=== PATIENT | male | born 1975 | race Caucasian/White ===

== ENCOUNTER 2022-11-30 15:34 | Emergency (ER) | payer BC, SELFPAY ==
[2022-11-30] VITALS (12 sets, daily range): BP systolic 140–157; BP diastolic 89–102; PULSE 77–99; RESP 11–29; TEMP 37.1; O2SAT 93–99; BMI 30.7
--- NOTE | 2022-11-30 15:41 | PC.NURSE ---
Bedside glucose was 112
--- NOTE | 2022-11-30 15:43 | ECG_ITS ---
[facility] Test Date: 2022-11-30 Pat Name: CANDELARIA GROVES Department: Room: - Gender: Male Research Investigator: : 1975 Requested By: Order Number: [id number] Reading MD: PORTER VANG Measurements Intervals [place] Rate: 75 P: 61 CT: 158 QRS: 5 QRSD: 94 T: 8 QT: 374 QTc: 403 Interpretive Statements 1100 Sinus rhythm 8102 Low QRS voltage in chest leads 9120 atypical ECG No previous ECG available for comparison Electronically Signed On 12-02-2022 19:37:56 EDT by PORTER VANG
--- NOTE | 2022-11-30 15:50 | ED_ITS ---
HPI - Dizziness General Chief Complaint: Dizziness Stated Complaint: light headed/dizziness Time Seen by Provider: 11/30/22 15:36 Source: patient Mode of arrival: ambulance Limitations: no limitations History of Present Illness HPI Narrative: 47-year-old male presents for lightheadedness. 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 He had been drinking plenty of water and had eaten a good breakfast. He feels somewhat better now. No headache or chest pain or palpitations. No shortness of breath or fever or vomiting. Related Data Home Medications Medication Instructions Recorded Confirmed No Known Home Medications 11/30/22 11/30/22 Allergies Allergy/AdvReac Type Severity Reaction Status Date / Time No Known Drug Allergies Allergy Verified 11/30/22 15:38 Review of Systems ROS Narrative A ten point review of systems is negative except as noted above. Exam Narrative Exam Narrative: Nurses note and vital signs reviewed and patient is not hypoxic. General: The patient appears well and in no apparent distress. Patient is resting comfortably on cart. Skin: Warm, dry, no pallor noted. There is no rash noted. Head: Normocephalic, atraumatic Eye: Normal conjunctiva, no drainage Ears, Nose, Mouth, and Throat: oral mucosa is moist. Nares patent. Cardiovascular: Regular Rate and Rhythm, not tachycardic Respiratory: Patient is in no distress, no accessory muscle use, lungs are clear to auscultation, no wheezing, rales or rhonchi Back: non-tender GI: no tenderness to palpation, no masses appreciated. No rebound, guarding, or rigidity noted. Musculoskeletal: The patient has no evidence of calf tenderness, no pitting edema, symmetrical pulses noted bilaterally Neurological: A&O x4, normal speech; upper and lower extremity strength intact Psychiatric: Cooperative Constitutional Vital Signs - 24 hr 11/30/22 15:35 11/30/22 15:38 11/30/22 15:40 Temperature 98.8 F Pulse Rate 83 Pulse Rate [Monitor] 77 Respiratory Rate 20 14 Blood Pressure Blood Pressure [Left Arm] 157/100 H Pulse Oximetry 99 97 97 11/30/22 15:45 11/30/22 15:45 11/30/22 15:45 Temperature Pulse Rate 93 H 83 91 H Pulse Rate [Monitor] Respiratory Rate 18 11 L 22 Blood Pressure 140/102 H 140/102 H Blood Pressure [Left Arm] Pulse Oximetry 96 97 93 L 11/30/22 16:05 11/30/22 16:10 11/30/22 16:33 Temperature Pulse Rate 95 H 90 Pulse Rate [Monitor] Respiratory Rate 29 H 20 17 Blood Pressure Blood Pressure [Left Arm] Pulse Oximetry 96 94 L 98 11/30/22 16:40 11/30/22 16:50 11/30/22 16:51 Temperature Pulse Rate 84 87 97 H Pulse Rate [Monitor] Respiratory Rate 15 17 26 H Blood Pressure 143/89 H Blood Pressure [Left Arm] Pulse Oximetry 97 98 95 11/30/22 17:00 Temperature Pulse Rate 99 H Pulse Rate [Monitor] Respiratory Rate 18 Blood Pressure 148/92 H Blood Pressure [Left Arm] Pulse Oximetry 96 Course Vital Signs Vital signs: Vital Signs Temperature 98.8 F 11/30/22 15:35 Pulse Rate 77 11/30/22 15:35 Respiratory Rate 20 11/30/22 15:35 Blood Pressure 157/100 H 11/30/22 15:35 Pulse Oximetry 99 11/30/22 15:35 Temperature 98.8 F 11/30/22 15:35 Pulse Rate 99 H 11/30/22 17:00 Respiratory Rate 18 11/30/22 17:00 Blood Pressure 148/92 H 11/30/22 17:00 Pulse Oximetry 96 11/30/22 17:00 MDM - Dizziness MDM Narrative Medical decision making narrative: his workup including CT brain and blood work is negative. He feels back to normal now without intervention and is able to be discharged home. Treatment diagnosis and follow-up were discussed with the patient. Differential Diagnosis Differential diagnosis: Likely benign paroxysmal positional vertigo, orthostatic hypotension and other (dehydration, acute kidney injury, anemia) Lab Data Attestation: I reviewed the patient's lab results. Labs: Lab Results 11/30/22 Range/Units 16:00 WBC 7.0 (4.0-11.0) 10^3/uL RBC 4.95 (4.70-6.10) 10^6/uL Hgb 16.1 (14.0-18.0) g/dL Hct 45.3 (42.0-54.0) % MCV 91.5 (80.0-94.0) fL MCH 32.5 (25.9-34.0) pg MCHC 35.5 H (29.9-35.2) g/dL RDW 12.0 (11.0-15.0) % Plt Count 217 (150-450) 10^3/uL MPV 9.2 L (9.5-13.5) fL Neut % (Auto) 67.8 (43.0-75.0) % Lymph % (Auto) 19.6 L (20.5-60.0) % [place] % (Auto) 7.7 (1.7-12.0) % Eos % (Auto) 3.4 (0.9-7.0) % Baso % (Auto) 1.1 (0.2-2.0) % Neut # (Auto) 4.8 (1.4-6.5) 10^3/uL Lymph # (Auto) 1.4 (1.2-3.8) 10^3/uL [place] # (Auto) 0.5 (0.3-0.8) 10^3/uL Eos # (Auto) 0.2 (0.0-0.7) 10^3/uL Baso # (Auto) 0.1 (0.0-0.1) 10^3/uL Abs Immat Gran (auto) 0.03 (0.00-0.03) 10^3/uL Imm/Tot Granulo (auto) 0.4 (0.0-0.5) % Sodium 137 (136-145) mmol/L Potassium 3.5 (3.5-5.1) mmol/L Chloride 101 (98-107) mmol/L Carbon Dioxide 24.6 (21.0-32.0) mmol/L Anion Gap 14.9 BUN 14.0 (7.0-18.0) mg/dL Creatinine 0.88 (0.70-1.30) mg/dL Est GFR ( Amer) >60 (>=60) Est GFR (Non-Af Amer) >60 (>=60) BUN/Creatinine Ratio 15.9 Glucose 104 (74-106) mg/dL Calcium 9.2 (8.5-10.1) mg/dL Troponin I High Sens 4.1 (4.0-76.1) pg/mL Urine Color Lt. yellow (YELLOW) Urine Clarity Clear (CLEAR) Urine pH 6.0 (5.0-9.0) Ur Specific [place] 1.015 (1.005-1.025) Urine Protein Negative (NEG/TRACE) mg/dL Urine Glucose (UA) Negative (NEGATIVE) mg/dL Urine Ketones Trace A (NEGATIVE) mg/dL Urine Occult Blood Trace-i (NEGATIVE) Urine Nitrite Negative (NEGATIVE) Urine Bilirubin Negative (NEGATIVE) Urine Urobilinogen 0.2 (0.2-1.0) EU/dL Ur Leukocyte Esterase Negative (NEGATIVE) Discharge Plan Discharge Chief Complaint: Dizziness Clinical Impression: Dizziness Patient Disposition: Home, Self-Care Time of Disposition Decision: 17:22 Condition: Good Mode of Transportation: Private Vehicle Prescriptions / Home Meds: No Action No Known Home Medications Instructions: Lightheadedness (ED) Stand Alone Forms: Portal Instructions Referrals: Physician,Non-Staff, MD [Primary Care Provider] - 1 week
--- NOTE | 2022-11-30 16:00 | XR_ITS ---
The [address] [id number] Patient Name: CANDELARIA GROVES MRN: [id number] date: 1975 Sex: M Assigned Patient Location: ER Current Patient Location: ED.MAIN Accession/Order Number: [id number] Exam Date: 11/30/2022 16:17 Report Date: 12/03/2022 12:04 At the request of: RICK LANG Procedure: XR chest 1V EXAMINATION: XR chest 1V HISTORY: dizzy COMPARISON: No relevant comparison available. TECHNIQUE: AP portable FINDINGS: LUNGS: No significant pulmonary parenchymal abnormalities. VASCULATURE: No increased pulmonary vasculature. PLEURA: No pneumothorax, effusion, or pleural thickening. CARDIAC: No cardiomegaly or cardiac silhouette abnormality. MEDIASTINUM: No visible mass or adenopathy. BONES: No fracture or visible bone lesion. OTHER: Delay in interpretation is related to technical factors, the images were not available for viewing IMPRESSION: No acute cardiopulmonary process Electronically authenticated by: STACI DAVIS Date: 12/03/2022 12:04
--- NOTE | 2022-11-30 16:00 | CT_ITS ---
The [address] [address] Patient Name: CANDELARIA GROVES MRN: [id number] date: 1975 Sex: M Assigned Patient Location: ER Current Patient Location: ER Accession/Order Number: [id number] Exam Date: 11/30/2022 16:17 Report Date: 11/30/2022 16:44 At the request of: RICK LANG Procedure: CT head/brain wo con EXAM: CT head/brain wo con HISTORY: dizzy COMPARISON: None. TECHNIQUE: Axial CT scans through the head were obtained without IV contrast administration. Dose reduction techniques were achieved by using: automated exposure control and/or adjustment of mA and /or kV according to patient size and/or use of iterative reconstruction technique. FINDINGS: There is no acute intracranial hemorrhage or abnormal extra-axial fluid collection. No mass effect or midline shift is seen. There is no evidence of large acute territorial infarction. There is no hydrocephalus. To the limit of CT, the posterior fossa appears unremarkable. The calvaria and extra cranial soft tissues are unremarkable. The visualized orbits show no abnormal mass. The visualized paranasal sinuses show no air-fluid level. Mastoid air cells are clear. IMPRESSION: No acute intracranial process. Electronically authenticated by: MARIELA BARBA Date: 11/30/2022 16:44
[2022-11-30 16:21] LABS: Basophils Absolute Auto 0.1 10^3/uL (0.0-0.1); Basophils Percent Auto 1.1 % (0.2-2.0); Eosinophils Absolute Auto 0.2 10^3/uL (0.0-0.7); Eosinophils Percent Auto 3.4 % (0.9-7.0); Hematocrit 45.3 % (42.0-54.0); Hemoglobin 16.1 g/dL (14.0-18.0); Immature Granulocytes Abs Auto 0.03 10^3/uL (0.00-0.03); Immature Granulocytes Pct Auto 0.4 % (0.0-0.5); Lymphocytes Absolute Auto 1.4 10^3/uL (1.2-3.8); Lymphocytes Percent Auto 19.6 % (20.5-60.0); Mean Corpuscular HGB Conc 35.5 g/dL (29.9-35.2); Mean Corpuscular Hemoglobin 32.5 pg (25.9-34.0); Mean Corpuscular Volume 91.5 fL (80.0-94.0); Mean Platelet Volume 9.2 fL (9.5-13.5); Monocytes Absolute Auto 0.5 10^3/uL (0.3-0.8); Monocytes Percent Auto 7.7 % (1.7-12.0); Neutrophils Absolute Auto 4.8 10^3/uL (1.4-6.5); Neutrophils Percent Auto 67.8 % (43.0-75.0); Platelet Count 217 10^3/uL (150-450); Red Blood Count 4.95 10^6/uL (4.70-6.10)
[2022-11-30 16:28] LABS: Anion Gap 14.9; BUN Creatinine Ratio 15.9; Calcium 9.2 mg/dL (8.5-10.1); Carbon Dioxide 24.6 mmol/L (21.0-32.0); Chloride 101 mmol/L (98-107); Estimated GFR (African America >60 (>=60); Estimated GFR (Non-African Ame >60 (>=60); Glucose 104 mg/dL (74-106); Potassium 3.5 mmol/L (3.5-5.1); Sodium 137 mmol/L (136-145); Troponin I High Sensitivity 4.1 pg/mL (4.0-76.1)
[2022-11-30 16:31] LABS: Bilirubin Urine NEGATIVE (NEGATIVE); Blood Urine TRACE-I (NEGATIVE); Clarity Urine CLEAR (CLEAR); Color Urine LT. YELLOW (YELLOW); Glucose Urine UA NEGATIVE (NEGATIVE); Ketones Urine TRACE mg/dL (NEGATIVE); Leukocyte Esterase Urine NEGATIVE (NEGATIVE); Nitrite Urine NEGATIVE (NEGATIVE); Protein Urine NEGATIVE (NEG/TRACE); Specific Gravity Urine 1.015 (1.005-1.025); Urobilinogen Urine 0.2 EU/dL (0.2-1.0)
== END 2022-11-30 17:34 | disposition home or self-care (01) ==
PROVIDERS: Emergency Provider Emergency Medicine
DX: R42 Dizziness and giddiness (principal)
CPT/HCPCS: 36415; 70450; 71045; 80048; 81003; 82948; 84484; 85025; 93005; 99285

== ENCOUNTER 2023-09-06 22:37 | Emergency (ER) | payer BC, SELFPAY ==
[2023-09-06 22:44] VITALS: BP 152/88; PULSE 103; TEMP 36.7; O2SAT 98; BMI 32.3
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
[2023-09-06 23:03] LABS: Basophils Absolute Auto 0.1 10^3/uL (0.0-0.1); Basophils Percent Auto 1.2 % (0.2-2.0); Eosinophils Absolute Auto 0.2 10^3/uL (0.0-0.7); Eosinophils Percent Auto 2.5 % (0.9-7.0); Hematocrit 49.4 % (42.0-54.0); Hemoglobin 16.8 g/dL (14.0-18.0); Immature Granulocytes Abs Auto 0.02 10^3/uL (0.00-0.03); Immature Granulocytes Pct Auto 0.2 % (0.0-0.5); Lymphocytes Absolute Auto 2.1 10^3/uL (1.2-3.8); Lymphocytes Percent Auto 24.6 % (20.5-60.0); Mean Corpuscular Hemoglobin 32.9 pg (25.9-34.0); Mean Corpuscular Volume 96.9 fL (80.0-94.0); Mean Platelet Volume 8.9 fL (9.5-13.5); Monocytes Absolute Auto 0.7 10^3/uL (0.3-0.8); Monocytes Percent Auto 8.7 % (1.7-12.0); Neutrophils Absolute Auto 5.2 10^3/uL (1.4-6.5); Neutrophils Percent Auto 62.8 % (43.0-75.0); Platelet Count 183 10^3/uL (150-450); Red Cell Distribution Width 11.6 % (11.0-15.0); White Blood Count 8.3 10^3/uL (4.0-11.0)
[2023-09-06 23:23] LABS: Alanine Aminotransferase 81 U/L (16-63); Albumin Level 4.2 g/dL (3.4-5.0); Alkaline Phosphatase 63 U/L (46-116); Anion Gap 18.1; Aspartate Amino Transferase 31 U/L (15-37); BUN Creatinine Ratio 12.3; Bilirubin Total 0.7 mg/dL (0.2-1.0); Calcium 8.8 mg/dL (8.5-10.1); Carbon Dioxide 20.6 mmol/L (21.0-32.0); Chloride 107 mmol/L (98-107); Estimated GFR (African America >60 (>=60); Estimated GFR (Non-African Ame >60 (>=60); Ethanol 331 mg/dL; Glucose 119 mg/dL (74-106); Magnesium 2.6 mg/dL (1.8-2.4); Potassium 3.7 mmol/L (3.5-5.1); Sodium 142 mmol/L (136-145); Total Protein 8.2 g/dL (6.4-8.2)
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
[2023-09-06 23:52] LABS: Amphetamine Screen Urine NEGATIVE (NEGATIVE); Barbiturates Screen Urine NEGATIVE (NEGATIVE); Benzodiazepines Screen Urine NEGATIVE (NEGATIVE); Buprenorphine Screen Urine NEGATIVE (NEGATIVE); Cannabinoid Screen Urine NEGATIVE (NEGATIVE); Cocaine Screen Urine NEGATIVE (NEGATIVE); Methadone Screen Urine NEGATIVE (NEGATIVE); Methamphetamines Screen Urine NEGATIVE (NEGATIVE); Opiate Screen Urine NEGATIVE (NEGATIVE); Oxycodone Screen Urine NEGATIVE (NEGATIVE); Phencyclidine Screen Urine NEGATIVE (NEGATIVE); Tricyclic Antidepressant Urine NEGATIVE (NEGATIVE)
--- NOTE | 2023-09-06 23:59 | PC.NURSE ---
residential lawn specialist approaches nurses station to inform this RN that patient has made a suicidal statement, saying that he wishes he was . This RN enters patient room, asked him what his statement was and told him that the officer told me what he had said and that he was not considered a suicidal patient. He said he was not serious, but he is informed that we could not take it as a joke. He is explained the process of the testing that is required now and that he will need to speak to [facility]. He is laughing and does not understand why this needs to happen, but he does say that he is willing to cooperate with the process.
--- NOTE | 2023-09-07 13:19 | ECG_ITS ---
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
== END 2023-09-06 23:50 ==
PROVIDERS: Emergency Provider Internal Medicine
DX: F10.129 Alcohol abuse with intoxication, unspecified (principal); Y90.8 Blood alcohol level of 240 mg/100 ml or more; R45.851 Suicidal ideations; F32.A Depression, unspecified
CPT/HCPCS: 36415; 80053; 80307; 80320; 83735; 85025; 93005; 99283

== ENCOUNTER 2023-09-28 12:45 | Emergency (ER) | payer BC, SELFPAY ==
[2023-09-28 12:48] VITALS: BP 131/92; PULSE 78; TEMP 36.7; O2SAT 98; BMI 31.3
--- NOTE | 2023-09-28 12:56 | PC.NURSE ---
fluid filled right knee, pt denies pain and ambulating with no problems
--- NOTE | 2023-09-28 12:58 | XR_ITS ---
The [address] [address] Patient Name: CANDELARIA GROVES MRN: [id number] date: 1975 Sex: M Assigned Patient Location: ER Current Patient Location: ER Accession/Order Number: [id number] Exam Date: 09/28/2023 13:16 Report Date: 09/28/2023 13:53 At the request of: RICK LANG Procedure: XR knee RT 3V EXAM: XR knee RT 3V HISTORY: Swollen for 4 days, likely bursitis COMPARISON: None. TECHNIQUE: AP, oblique, lateral x-ray right knee. FINDINGS: Normal mineralization. No fracture or focal bone lesion. Normal joint spaces. No joint effusion. Marked prevertebral soft tissue swelling correlate for bursitis. No intra-articular or periarticular calcification or loose body XR/XR knee RT 3V IMPRESSION: Negative for fracture or joint effusion. Marked prepatellar soft tissue swelling correlate for bursitis. Electronically authenticated by: TARA HERNANDEZ Date: 09/28/2023 13:53
--- NOTE | 2023-09-28 12:58 | ED.EXTPRO1 ---
HPI - Extremity Problem General Chief complaint: Extremity Problem, Nontraumatic Stated complaint: LOWER EXTREMITY PAIN Time Seen by Provider: 09/28/23 12:54 Source: patient Mode of arrival: walk-in History of Present Illness HPI Narrative: 48-year-old male presents for swelling to his right knee. It has been like this for 4 days and there is no specific injury. Signs and is frequently on his knees. He has no symptoms in the left knee. He has never had an issue with this knee before. Related Data Previous Rx's ?Medication ?Instructions ?Recorded ibuprofen 800 mg tablet 800 mg PO Q8H PRN pain #20 tabs 09/28/23 Allergies Allergy/AdvReac Type Severity Reaction Status Date / Time No Known Drug Allergies Allergy Verified 11/30/22 15:38 Review of Systems ROS Narrative A ten point review of systems is negative except as noted above. Exam Narrative Exam Narrative: Nurses note and vital signs reviewed and patient is not hypoxic. General: The patient appears well and in no apparent distress. Patient is resting comfortably on cart. Skin: Warm, dry, no pallor noted. There is no rash noted. Head: Normocephalic, atraumatic Eye: Normal conjunctiva, no drainage Ears, Nose, Mouth, and Throat: oral mucosa is moist. Nares patent. Cardiovascular: Regular Rate and Rhythm Respiratory: Patient is in no distress, no accessory muscle use, lungs are clear to auscultation, no wheezing, rales or rhonchi Back: non-tender GI: Soft and nontender Musculoskeletal: The right knee is examined. He has prepatellar swelling. There is no erythema or bruise or abrasion or other defect in the skin. Neurological: Awake and alert Psychiatric: Cooperative Constitutional Vital Signs, click to edit/add: Last Vital Signs Temp 98.1 F 09/28/23 12:48 Pulse 78 09/28/23 12:48 Resp 14 09/28/23 12:48 BP 131/92 H 09/28/23 12:48 Pulse Ox 98 09/28/23 12:48 O2 Del Method Room Air 09/28/23 12:48 Course Vital Signs Vital signs: Vital Signs Temperature 98.1 F 09/28/23 12:48 Pulse Rate 78 09/28/23 12:48 Respiratory Rate 14 09/28/23 12:48 Blood Pressure 131/92 H 09/28/23 12:48 Pulse Oximetry 98 09/28/23 12:48 Oxygen Delivery Method Room Air 09/28/23 12:48 Temperature 98.1 F 09/28/23 12:48 Pulse Rate 78 09/28/23 12:48 Respiratory Rate 14 09/28/23 12:48 Blood Pressure 131/92 H 09/28/23 12:48 Pulse Oximetry 98 09/28/23 12:48 Oxygen Delivery Method Room Air 09/28/23 12:48 MDM - Extremity (Nontraumatic) MDM Narrative Medical decision making narrative: Physical exam and x-ray are consistent with bursitis. Camilo wrap applied, application checked by me and found to be appropriate, he is neurovascular intact and he was placed on crutches. Orthopedist appointment was made and he is prescribed anti-inflammatory. Treatment diagnosis and follow-up were discussed with the patient. Differential Diagnosis Differential diagnosis: Likely other (Knee sprain, bursitis) Discharge Plan Discharge Stand Alone Forms: Portal Instructions Chief Complaint: Extremity Problem, Nontraumatic Clinical Impression: Bursitis of right knee Patient Disposition: Home, Self-Care Time of Disposition Decision: 14:01 Condition: Good Mode of Transportation: Private Vehicle Prescriptions / Home Meds: New ibuprofen 800 mg tablet 800 mg PO Q8H PRN (Reason: pain) Qty: 20 0RF Print Language: Kyrgyz Instructions: Knee Bursitis (ED) Additional Instructions: See Dr. Mills at 10 AM on Saturday Referrals: Physician,Non-Staff, [Primary Care Provider] - 1 week Raymundo Mills MD [Physician] - 1 week
== END 2023-09-28 14:15 | disposition home or self-care (01) ==
PROVIDERS: Emergency Provider Emergency Medicine
DX: M70.51 Other bursitis of knee, right knee (principal)
CPT/HCPCS: 73562; 99283

== ENCOUNTER 2024-04-27 08:31 | Emergency (ER) | payer BC, SELFPAY ==
[2024-04-27] VITALS (23 sets, daily range): BP systolic 119–145; BP diastolic 79–92; PULSE 79; TEMP 37.1; O2SAT 94–99; BMI 32.3
--- NOTE | 2024-04-27 09:00 | ED_ITS ---
HPI - Abdominal Pain General Chief Complaint: Abdominal Pain Stated Complaint: ABDOMINAL PAIN Time Seen by Provider: 04/27/24 08:34 Source: patient Mode of arrival: walk-in Limitations: no limitations History of Present Illness HPI narrative: 48-year-old male presents to the emergency department for abdominal pain. It is across his lower abdomen, bilateral, and has been present for 2 days. No constipation vomiting or diarrhea. No fever or injury. No dysuria or hematuria and it is continuous. Related Data Previous Rx's ?Medication ?Instructions ?Recorded ciprofloxacin HCl 500 mg tablet 500 mg PO Q12H #20 tabs 04/27/24 (Cipro) metronidazole 500 mg tablet 500 mg PO TID #30 tabs 04/27/24 Allergies Allergy/AdvReac Type Severity Reaction Status Date / Time No Known Drug Allergies Allergy Verified 11/30/22 15:38 Review of Systems ROS Narrative A ten point review of systems is negative except as noted above. Exam Narrative Exam Narrative: Nurses note and vital signs reviewed and patient is not hypoxic. General: The patient appears well and in no apparent distress. Patient is resting comfortably on cart. Skin: Warm, dry, no pallor noted. There is no rash noted. Head: Normocephalic, atraumatic Eye: Normal conjunctiva, no drainage Ears, Nose, Mouth, and Throat: oral mucosa is moist. Nares patent. Cardiovascular: Regular Rate and Rhythm Respiratory: Patient is in no distress, no accessory muscle use, lungs are clear to auscultation, no wheezing, rales or rhonchi Back: non-tender GI: Soft and nondistended. No tenderness across the upper abdomen but he has tenderness in the left lower quadrant and right lower quadrant of his abdomen. No masses or rebound or guarding present. Musculoskeletal: The patient has no evidence of calf tenderness, no pitting edema, symmetrical pulses noted bilaterally Neurological: A&O, normal speech Psychiatric: Cooperative Constitutional Vital Signs, click to edit/add: Last Vital Signs Temp 98.8 F 04/27/24 08:38 Pulse 79 04/27/24 08:38 Resp 18 04/27/24 08:38 BP 131/82 04/27/24 10:00 Pulse Ox 94 L 04/27/24 09:20 O2 Del Method Room Air 04/27/24 08:52 Course Vital Signs Vital signs: Vital Signs Pulse Oximetry 98 04/27/24 08:37 Temperature 98.8 F 04/27/24 08:38 Pulse Rate 79 04/27/24 08:38 Respiratory Rate 18 04/27/24 08:38 Blood Pressure 131/82 04/27/24 10:00 Pulse Oximetry 94 L 04/27/24 09:20 Oxygen Delivery Method Room Air 04/27/24 08:52 MDM - Abdominal Pain MDM Narrative Medical decision making narrative: Acute diverticulitis is identified, uncomplicated. He has never had a colonoscopy and we discussed colonoscopies. He is given IV Cipro and Flagyl here and discharged home on oral Cipro and Flagyl. No indication for admission to the hospital at this point. Treatment diagnosis and follow-up were discussed with the patient. Differential Diagnosis Differential diagnosis: Likely acute appendicitis, constipation, diverticulitis, gastroenteritis and pancreatitis Lab Data Attestation: I reviewed the patient's lab results. Labs: Lab Results 04/27/24 04/27/24 Range/Units 08:43 08:45 WBC 10.2 (4.0-11.0) 10^3/uL RBC 4.89 (4.70-6.10) 10^6/uL Hgb 16.1 (14.0-18.0) g/dL Hct 45.2 (42.0-54.0) % MCV 92.4 (80.0-94.0) fL MCH 32.9 (25.9-34.0) pg MCHC 35.6 H (29.9-35.2) g/dL RDW 11.9 (11.0-15.0) % Plt Count 202 (150-450) 10^3/uL MPV 9.3 L (9.5-13.5) fL Neut % (Auto) 72.3 (43.0-75.0) % Lymph % (Auto) 15.6 L (20.5-60.0) % [place] % (Auto) 8.1 (1.7-12.0) % Eos % (Auto) 2.9 (0.9-7.0) % Baso % (Auto) 0.8 (0.2-2.0) % Neut # (Auto) 7.4 H (1.4-6.5) 10^3/uL Lymph # (Auto) 1.6 (1.2-3.8) 10^3/uL [place] # (Auto) 0.8 (0.3-0.8) 10^3/uL Eos # (Auto) 0.3 (0.0-0.7) 10^3/uL Baso # (Auto) 0.1 (0.0-0.1) 10^3/uL Abs Immat Gran (auto) 0.03 (0.00-0.03) 10^3/uL Imm/Tot Granulo (auto) 0.3 (0.0-0.5) % Sodium 142 (136-145) mmol/L Potassium 3.9 (3.5-5.1) mmol/L Chloride 104 (98-107) mmol/L Carbon Dioxide 25.1 (21.0-32.0) mmol/L Anion Gap 16.8 BUN 12.0 (7.0-18.0) mg/dL Creatinine 0.99 (0.70-1.30) mg/dL Est GFR ( Amer) >60 (>=60 mL/min/1.73m^2) Est GFR (Non-Af Amer) >60 (>=60 mL/min/1.73m^2) BUN/Creatinine Ratio 12.1 Glucose 107 H (74-106) mg/dL Calcium 8.9 (8.5-10.1) mg/dL Urine Color Yellow (YELLOW) Urine Clarity Clear (CLEAR) Urine pH 6.0 (5.0-9.0) Ur Specific [place] 1.025 (1.005-1.025) Urine Protein Negative (NEG/TRACE) mg/dL Urine Glucose (UA) Negative (NEGATIVE) mg/dL Urine Ketones Negative (NEGATIVE) mg/dL Urine Occult Blood Trace-i (NEGATIVE) Urine Nitrite Negative (NEGATIVE) Urine Bilirubin Negative (NEGATIVE) Urine Urobilinogen 0.2 (0.2-1.0) EU/dL Ur Leukocyte Esterase Negative (NEGATIVE) Urine RBC 0-2 (0-2) #/HPF Urine WBC None seen (NONE SEEN) #/HPF Ur Squamous Epith Cells Rare (NONE/RARE) #/LPF Urine Crystals None seen (None Seen) #/HPF Urine Bacteria Trace A (NONE SEEN) #/HPF Urine Casts None seen (NONE SEEN) #/LPF Urine Mucus None seen (NONE SEEN) Imaging Data CT scan - abdomen: Radiologist's impression: ITS Impressions Abdomen/Pelvis CT 04/27/24 09:06 IMPRESSION: 1. Nonobstructing right nephrolithiasis. 2. Moderate acute diverticulitis of the distal sigmoid colon. No bowel obstruction. Electronically authenticated by: MELLISSA BRAUN Date: 04/27/2024 10:30 Discharge Plan Discharge Chief Complaint: Abdominal Pain Clinical Impression: Diverticulitis Patient Disposition: Home, Self-Care Time of Disposition Decision: 11:29 Condition: Good Mode of Transportation: Private Vehicle Prescriptions / Home Meds: New metronidazole 500 mg tablet 500 mg PO TID Qty: 30 0RF ciprofloxacin HCl [Cipro] 500 mg tablet 500 mg PO Q12H Qty: 20 0RF Print Language: Icelandic Instructions: Diverticulitis (ED) Referrals: Physician,Non-Staff, MD [Primary Care Provider] - 1 week
--- NOTE | 2024-04-27 09:06 | CT_ITS ---
[address] [address] Patient Name: CANDELARIA GROVES MRN: [id number] date: 1975 Sex: M Assigned Patient Location: ER Current Patient Location: Accession/Order Number: [id number] Exam Date: 04/27/2024 09:23 Report Date: 04/27/2024 10:30 At the request of: RICK LANG Procedure: CT abdomen pelvis w con EXAMINATION: CT abdomen pelvis w con HISTORY: low abd pain , right flank pain COMPARISON: No relevant comparison available. TECHNIQUE: Axial, Coronal, and Sagittal images were obtained without and/or with IV contrast as indicated by examination type. Dose reduction techniques were achieved by using automated exposure control and/or adjustment of mA and/or kV according to patient size and/or use of iterative reconstruction technique. FINDINGS: LUNG BASES: No visible pulmonary or pleural disease. LIVER: No enlargement, atrophy, suspicious density, or significant focal lesion. BILIARY: No dilatation or calcification. PANCREAS: No lesion, fluid collection, or abnormal duct dilatation. SPLEEN: No enlargement or focal lesion. ADRENALS: No mass or enlargement. KIDNEYS: 2 mm nonobstructing stone within right kidney. Unremarkable left kidney and bilateral ureters. BOWEL/MESENTERY: Numerous diverticula involving the descending and sigmoid colon with moderate wall thickening and mild pericolonic inflammatory changes of the distal sigmoid colon. No bowel obstruction, free air, or free fluid. Normal appendix. AORTA/VASCULAR: No aneurysm or dissection. RETROPERITONEUM: No mass or adenopathy. LYMPH NODES: No adenopathy. URINARY BLADDER: No visible focal wall thickening, lesion, or calculus. PELVIC ORGANS: No visible mass. Pelvic organs appropriate for patient age. ABDOMINAL WALL: No mass or hernia. BONES: No bony lesion or fracture. OTHER: Negative. CT/CT abdomen pelvis w con IMPRESSION: 1. Nonobstructing right nephrolithiasis. 2. Moderate acute diverticulitis of the distal sigmoid colon. No bowel obstruction. Electronically authenticated by: MELLISSA BRAUN Date: 04/27/2024 10:30
[2024-04-27 09:12] LABS: Basophils Absolute Auto 0.1 10^3/uL (0.0-0.1); Basophils Percent Auto 0.8 % (0.2-2.0); Eosinophils Absolute Auto 0.3 10^3/uL (0.0-0.7); Eosinophils Percent Auto 2.9 % (0.9-7.0); Hematocrit 45.2 % (42.0-54.0); Hemoglobin 16.1 g/dL (14.0-18.0); Immature Granulocytes Abs Auto 0.03 10^3/uL (0.00-0.03); Immature Granulocytes Pct Auto 0.3 % (0.0-0.5); Lymphocytes Absolute Auto 1.6 10^3/uL (1.2-3.8); Lymphocytes Percent Auto 15.6 % (20.5-60.0); Mean Corpuscular HGB Conc 35.6 g/dL (29.9-35.2); Mean Corpuscular Hemoglobin 32.9 pg (25.9-34.0); Mean Corpuscular Volume 92.4 fL (80.0-94.0); Mean Platelet Volume 9.3 fL (9.5-13.5); Monocytes Absolute Auto 0.8 10^3/uL (0.3-0.8); Monocytes Percent Auto 8.1 % (1.7-12.0); Neutrophils Absolute Auto 7.4 10^3/uL (1.4-6.5); Neutrophils Percent Auto 72.3 % (43.0-75.0); Platelet Count 202 10^3/uL (150-450); Red Blood Count 4.89 10^6/uL (4.70-6.10); Red Cell Distribution Width 11.9 % (11.0-15.0); White Blood Count 10.2 10^3/uL (4.0-11.0)
[2024-04-27 09:15] LABS: Anion Gap 16.8; BUN Creatinine Ratio 12.1; Calcium 8.9 mg/dL (8.5-10.1); Carbon Dioxide 25.1 mmol/L (21.0-32.0); Chloride 104 mmol/L (98-107); Estimated GFR (African America >60 (>=60 mL/min/1.73m^2); Estimated GFR (Non-African Ame >60 (>=60 mL/min/1.73m^2); Glucose 107 mg/dL (74-106); Potassium 3.9 mmol/L (3.5-5.1); Sodium 142 mmol/L (136-145)
[2024-04-27 09:35] LABS: Bilirubin Urine NEGATIVE (NEGATIVE); Blood Urine TRACE-I (NEGATIVE); Clarity Urine CLEAR (CLEAR); Color Urine YELLOW (YELLOW); Glucose Urine UA NEGATIVE (NEGATIVE); Ketones Urine NEGATIVE (NEGATIVE); Leukocyte Esterase Urine NEGATIVE (NEGATIVE); Nitrite Urine NEGATIVE (NEGATIVE); Protein Urine NEGATIVE (NEG/TRACE); Specific Gravity Urine 1.025 (1.005-1.025); Urobilinogen Urine 0.2 EU/dL (0.2-1.0)
[2024-04-27 09:48] LABS: Bacteria Urine TRACE #/HPF (NONE SEEN); Cast Seen? NONE SEEN #/LPF (NONE SEEN); Crystals Seen? None Seen #/HPF (None Seen); Mucus Urine NONE SEEN (NONE SEEN); RBC Urine 0-2 #/HPF (0-2); Squamous Epithelial Cell Urine RARE #/LPF (NONE/RARE); WBC Urine NONE SEEN #/HPF (NONE SEEN)
[2024-04-27] MEDS: METRONIDAZOLE/SODIUM CHLORIDE 500 MG/100 ML PREMIX 100 MG IV (11:08)
[2024-04-27] MEDS: CIPROFLOXACIN IN 5 % DEXTROSE 400 MG/200 ML PREMIX 200 MG IV (12:07)
== END 2024-04-27 13:14 | disposition home or self-care (01) ==
PROVIDERS: Emergency Provider Emergency Medicine
DX: K57.32 Diverticulitis of large intestine without perforation or abscess without bleeding (principal)
CPT/HCPCS: 36415; 74177; 80048; 81001; 85025; 96365; 96367; 99285; J0744; J1836; Q9967

== ENCOUNTER 2025-05-01 09:57 | Emergency (ER) | payer BC, SELFPAY ==
[2025-05-01 10:09] VITALS: BP 142/91; PULSE 66; TEMP 37.3; O2SAT 98; BMI 32.3
--- NOTE | 2025-05-01 10:15 | XR_ITS ---
[facility] [place] [id number] Patient Name: CANDELARIA GROVES MRN: [id number] date: 1975 Sex: M Assigned Patient Location: ER Current Patient Location: ED.MAIN Accession/Order Number: [id number] Exam Date: 05/01/2025 10:30 Report Date: 05/01/2025 10:50 At the request of: VIJAYA NICOLE MD Procedure: XR ankle LT min 3V LEFT FOOT - 3 views left ankle 3 views CLINICAL HISTORY: pain COMPARISON: None FINDINGS: Left ankle: Soft tissue swelling is present. Ankle mortise appears intact. No acute bony process is seen. Left foot: Mild soft tissue swelling. No acute bony process is seen. Joint spaces demonstrate mild narrowing involving the first MTP joint without erosions. XR/XR ankle LT min 3V IMPRESSION: SOFT TISSUE SWELLING INVOLVING THE LEFT ANKLE AND FOOT WITHOUT ACUTE BONY PROCESS. Impression dictated by: Phani Rosa Jr., DAnnabelOAnnabel 05/01/2025 10:50 AM Dictation Location[facility] Electronically authenticated by: [id number] Y Date: 05/01/2025 10:50
--- NOTE | 2025-05-01 10:15 | XR_ITS ---
[facility] [place] [id number] Patient Name: CANDELARIA GROVES MRN: [id number] date: 1975 Sex: M Assigned Patient Location: ER Current Patient Location: ED.MAIN Accession/Order Number: [id number] Exam Date: 05/01/2025 10:30 Report Date: 05/01/2025 10:50 At the request of: VIJAYA NICOLE MD Procedure: XR ankle LT min 3V LEFT FOOT - 3 views left ankle 3 views CLINICAL HISTORY: pain COMPARISON: None FINDINGS: Left ankle: Soft tissue swelling is present. Ankle mortise appears intact. No acute bony process is seen. Left foot: Mild soft tissue swelling. No acute bony process is seen. Joint spaces demonstrate mild narrowing involving the first MTP joint without erosions. XR/XR foot LT min 3V IMPRESSION: SOFT TISSUE SWELLING INVOLVING THE LEFT ANKLE AND FOOT WITHOUT ACUTE BONY PROCESS. Impression dictated by: Phani Rosa Jr., DAnnabelOAnnabel 05/01/2025 10:50 AM Dictation Location: [facility] Electronically authenticated by: [id number] Y Date: 05/01/2025 10:50
--- OUTSIDE RECORDS SUMMARY | 2025-05-01 10:39 | XMS_ITS | CCD ---
Author Organization [facility] Care Team Providers Care Sales Stock Associate Name Role Phone Padma Larsen Unavailable Joesph Noriega Unavailable Adore Moreno Unavailable Janette JOHNSON, Marielle Kuo Attend ing Unavailable PAUL BEAN Referring Unavailable PAUL BEAN Primary Care Unavailable Clark Schreiber Attending Unavailab Clark Lowry Admitting Unavailab levi REYES FAMILY, PHYSICIAN Primary Care Unavailable Paul Bean DO Primary Care Provider Paul Bean DO Primary Care Provider PAUL BEAN Attending Unavailable PAUL BEAN Referring Unavailable PAUL BEAN Primary Care Unavailable PAUL BEAN Attending Unavailable PAUL BEAN Referring Unavailable PAUL BEAN Primary Care Unavailable PAUL BEAN Referring Unavailable PAUL BEAN Primary Care Unavailable PAUL BEAN Referring Unavailable PAUL BEAN Primary Care Unavailable PAUL BEAN Attending Unavailable PAUL BEAN Referring Unavailable PAUL BEAN Primary Care Unavailable PAUL BEAN Attending Unavailable PAUL BEAN Referring Unavailable PAUL BEAN Primary Care Unavailable PAUL BEAN Referring Unavailable PAUL BEAN Primary Care Unavailable Medications Current Medications MedicationDrug Class(es)DatesSig (Normalized)Sig (Original)doxycycline hyclate 100 mg oral capsule (1 source)Tetracycline-class DrugStart: 98-09-8713acji 1 capsule by mouth twice dailyDoxycycline Hyclate 100 mg capsule Active 100 MG PO Twice daily 29 03July 23, 2024 12:00amgabapentin 600 mg oral tablet (2 sources)Anti-epileptic AgentStart: 56-08-1300ybqj 1 capsule by mouth once daily at bedtimeGabapentin 600 MG 1 capsule Orally qhs for 30 day(s) October, Activemeloxicam 15 mg oral tablet (4 sources)Nonsteroidal Anti-inflammatory DrugStart: 75-29-4084lymf 1 tablet by mouth in the morningmeloxicam (MOBIC) 15 mg tablet Indications: Rotator cuff arthropathy of right shoulder Take 1 tablet (15 mg total) by mouth in the morning. 30 tablet 2 11/18/2024 ActivemethylPREDNISolone 4 mg oral tablet (1 source)CorticosteroidStart: 96-59-0365gxjkwmIOMWVHKqcpft 4 MG as directed Orally for daily dose take half with breakfast, half with dinner for 6 days May, ActivepredniSONE 20 mg oral tablet (2 sources)Start: 68-18-6582ftus 2 tablets by mouth once dailyPrednisone 20 mg tablet Active 20 MG PO .COMPLEX July 23, 2024 12:00am Take 2 tabs po daily x 5 daysStart: 63-13-2253brot 1 tablet by mouth every twelve hours predniSONE 20 MG 1 tablet Orally bid for 5 day(s) Sep, Active Problems Active Problems Problem ClassificationProblemDateDocumented DateEpisodic/ChronicAnxiety disorders (5 sources)Generalized anxiety disorder; Translations: [Generalized anxiety disorder]ChronicGout and other crystal arthropathies (3 sources)Gout; Translations: [Gout, unspecified]ChronicMalaise and fatigue (2 sources)Other fatigue; Translations: [Fatigue]Onset: 257513-29-0324 EpisodicMood disorders (5 sources)Fatigue; Translations: [Major depressive disorder, single episode, unspecified]ChronicOther nervous system disorders (1 source)Other chronic pain; Translations: [Other chronic pain]Onset: 61-11-0096PzwffxdWhuwh nervous system disorders (4 sources)Paresthesia of hand ; Translations: [Paresthesia of skin]Episodic Other non-traumatic joint disorders (2 sources)Rotator cuff arthropathy of right shoulder; Translations: [Other specific arthropathies, not elsewhere classified, right shoulder]11-18-2024 ChronicOther non-traumatic joint disorders (2 sources)Other specific arthropathies, not elsewhere classified, right shoulder; Translations: [Other specific arthropathies, not elsewhere classified, right shoulder]Onset: 05-36-6189QcqyqxjWpzzw non-traumatic joint disorders (1 source)Rotator cuff arthropathy of right hcqemimz11-53-0869AxzsnzqvZherz non- traumatic joint disorders (1 source)Shoulder painOnset: 03-87-4443AuoithzdIvjle non-traumatic joint disorders (1 source)Pain in right shoulder; Translations: [Pain in right shoulder]Onset: 24-05-7187MjekisulGrclo nutritional; endocrine; and metabolic disorders (1 source)Obese class I; Translations: [Obesity, unspecified]55-52-5330Uqwacpc Spondylosis; intervertebral disc disorders; other back problems (5 sources)Radiculopathy, cervical region; Translations: [Cervical radiculopathy]Onset: 10-02-2021 Resolved: 09-36-5003MppedlfePppnttyvghf injury; contusion (1 source)Abrasion of left forearm, initial encounterEpisodicUnclassified (1 source)wellnessOnset: 01-15-2025 Past or Other Problems Problem ClassificationProblemDateDocumented DateEpisodic/ChronicMood disorders (5 sources)Mood disordersOnset: 12-11-2023 Resolved: 565940-84-0842Ofwvv nervous system disorders (1 source)Paresthesia of skinOnset: 10-31-2021 Resolved: 47-19-4637Adkpraez Results Test NameValueInterpretationReference RangeFacilityCOMPREHENSIVE METABOLIC PANEL on 45-62-9532Dxwilad [Mass/Vol]4.9 g/dLNormal3.2-5.3[facility] Ambulatory PPGComment on above:Performed By: #### CMP #### [facility] ([facility]) [address] [place] [address] VIRALP [Catalytic activity/Vol]51 U/SXwycwo55-637PhlXfawqz [facility] Ambulatory PPGComment on above:Performed By: #### CMP #### [facility] ([facility]) [address] [place] [address] VIRALT [Catalytic activity/Vol]46 U/LHigh<=40[facility] Ambulatory PPGComment on above:Performed By: #### CMP #### [facility] ([facility]) [address] [place] [address] VIRAnion gap [Moles/Vol]11 mmol/LNormal5-15[facility] Ambulatory PPGComment on above:Performed By: #### CMP #### [facility] ([facility]) [address] [place] [address] VIRAST [Catalytic activity/Vol]27 U/LNormal<=41[facility] Ambulatory PPGComment on above:Performed By: #### CMP #### [facility] ([facility]) [address] [place] [address] VIRBilirubin [Mass/Vol]1.0 mg/dLNormal0.3-1.2PHocking [facility] Ambulatory PPGComment on above:Performed By: #### CMP #### [facility] ([facility]) [address] [place] [address] VIRCalcium [Mass/Vol]10.0 mg/dLNormal8.5-10.5PHocking Valley [facility] Ambulatory PPGComment on above:Performed By: #### CMP #### [facility] ([facility]) [address] [place] [address] VIRChloride [Moles/Vol]101 mmol/ZFrndmk64-078LmpGwpcta Hospital Ambulatory PPGComment on above:Performed By: #### CMP #### [facility] ([facility]) [address] [place] [address] VIRCO2 [Moles/Vol]27 mmol/ZSuymep71-12FudGqasxa Hospital Ambulatory PPGComment on above:Performed By: #### CMP #### [facility] ([facility]) [address] [place] [address] VIRCreatinine [Mass/Vol]0.87 mg/dLNormal0.60-1.30[facility] Ambulatory PPGComment on above:Result Comment: METHOD TRACEABLE TO IDMS STANDARDPerformed By: #### CMP #### [facility] ([facility]) [address] [place] [address] VIREGFR (CKD-EPI) NON-RACE DEPENDENT>^90Normal>=60[facility] Ambulatory PPGComment on above:Result Comment: Reported eGFR is based on the CKD-EPI 2020 equation that does not use a race coefficient.Performed By: #### CMP #### [facility] ([facility]) [address] [place] [address] VIRGlucose [Mass/Vol]140 mg/eTPfmk86-82VqrKqmkve Hospital Ambulatory PPGComment on above:Performed By: #### CMP #### [facility] ([facility]) [address] [place] [address] VIRPotassium [Moles/Vol]4.1 mmol/LNormal3.5-5.0[facility] Ambulatory PPGComment on above:Performed By: #### CMP #### [facility] ([facility]) [address] [place] [address] VIRProtein [Mass/Vol]7.8 g/dLNormal6.0-8.0[facility] Ambulatory PPGComment on above:Performed By: #### CMP #### [facility] ([facility]) [address] [place] [address] VIRSodium [Moles/Vol]139 mmol/PGechxr054-721TavZdsgvo Hospital Ambulatory PPGComment on above:Performed By: #### CMP #### [facility] ([facility]) [address] [place] [address] VIRUrea nitrogen [Mass/Vol]13 mg/dLNormal5-23[facility] Ambulatory PPGComment on above:Performed By: #### CMP #### [facility] ([facility]) [address] [place] [address] VIRLIPID PROFILEon 00-30-8267Gzlztqczvtq [Mass/Vol]243 mg/dL Hpje519-943HimTymqed Hospital Ambulatory PPGComment on above:Performed By: #### LIPR #### [facility] ([facility]) [address] [place] [address] VIRCholesterol in HDL [Mass/Vol]55 mg/dLNormal>39ProN[facility] Ambulatory PPGComment on above:Result Comment: HDL <40 mg/dL - High Risk HDL > or = 40mg/dL- Desirable HDL >60 mg/dL - Negative RiskPerformed By: #### LIPR #### [facility] ([facility]) [address] [place] [address] VIRCholesterol in LDL [Mass/Vol]146 mg/dLHigh<130[facility] Ambulatory PPGComment on above:Result Comment: LDL <100 mg/dL - Desirable LDL >160 mg/dL - High RiskPerformed By: #### LIPR #### [facility] ([facility]) [address] [place] [address] VIRCHOLESTEROL:HDL4.3Rqckfd4.0-5.0[facility] Ambulatory PPGComment on above:Performed By: #### LIPR #### [facility] ([facility]) [address] [place] [address] VIRTriglyceride [Mass/Vol]210 mg/tTEiiz84-233BuiFfqngb Hospital Ambulatory PPGComment on above:Performed By: #### LIPR #### [facility] ([facility]) [address] [place] [address] VIRVERY LOW ABHSJTIQUTM31 mg/dLHigh0-30[facility] Ambulatory PPGComment on above:Performed By: #### LIPR #### [facility] ([facility]) [address] [place] [address] VIRXR SPINE CERVICAL 4 OR 5 VWSon 30-35-6935NS SPINE CERVICAL 4 OR 5 VWSXR SPINE CERVICAL 4 OR 5 VWS HISTORY: Pain TECHNIQUE: Frontal lateral and odontoid views of the cervical spine were obtained. Lateral flexion-extension views were also obtained.. COMPARISON: None. FINDINGS: There is disc space narrowing and endplate osteophyte formation at C5- 6 and C6-7. The vertebral body heights and remaining disc spaces are well- maintained. There is no evidence for an acuteosseous abnormality. No instability is seen on either flexion or extension views. IMPRESSION: Disc space narrowing and endplate osteophyte formation at C5-6 and C6-7.. Finalized by Boubacar Barrera MD on 12/17/2024 1:22 PMNormalProUt South[facility] Clements Jr. University HospitalXR SHOULDER RT MIN 2 VWSon 47-38-6421MA SHOULDER RT MIN 2 VWSXR SHOULDER RT MIN 2 VWS History: Pain Exam/Technique: AP Grashey and scapular Y views of the right shoulder were obtained. Comparison: None Findings: There is no evidence for an acute osseous abnormalities. No significant degenerative changes are seen. No dislocation is demonstrated. IMPRESSION: Normal right shoulder. Finalized by Boubacar Barrera MD on 12/16/2024 3:45 PMNormalAdena Fayette Medical CenterCOMPREHENSIVE METABOLIC PANELon 38-64-6575Qfpejbx [Mass/Vol]4.6 g/dL Normal3.2-5.3[facility]uffton HospitalComment on above:Performed By: #### 2986- 8, CMP, 42972-8 #### [facility] ([id number]) [address], [address] [place], [place] [address]TEX [Catalytic activity/Vol]44 U/VQkiawb11-813MewUhsihg [place] HospitalComment on above:Performed By: #### 2986-8, CMP, 70551-7 #### [facility] ([id number]) [address], [address] [place], [place] [address]NMH [Catalytic activity/Vol]31 U/LNormal0-40[facility] HospitalComment on above:Performed By: #### 2986-8, CMP, 61573-5 #### [facility] ([id number]) [address], [address] [place], [place] [address]Qrnas gap [Moles/Vol]10 mmol/LNormal5-15ProC[facility] Clinic Fairview Hospitalca Santos HospitalComment on above:Performed By: #### 2986-8, CMP, 53475-7 #### [facility] ([id number]) [address], [address] [place], [place] [address]LLU [Catalytic activity/Vol]23 U/LNormal0-41ProC[facility] Clinic Fairview Hospitalca Santos HospitalComment on above:Performed By: #### 2986-8, CMP, 98305-5 #### [facility] ([id number]) [address], [address] [place], [place] [address]Yevmkfybm [Mass/Vol]0.6 mg/dLNormal0.3-1.2Pro[facility] HospitalComment on above:Performed By: #### 2986-8, CMP, 41075-2 #### [facility] ([id number]) [address], [address] [place], [place] [address]Fwxclhl [Mass/Vol]9.6 mg/dLNormal8.5-10.5ProMedUniversity Hospitals Samaritan Medical Center HospitalComment on above:Performed By: #### 2986-8, ANGELIKA, 40774-3 #### [facility] ([id number]) [address], [address] [place], [place] [address]Emnaqsvo [Moles/Vol]105 mmol/PRfzclm53-036OcsYkpypr [place] HospitalComment on above:Performed By: #### 2986-8, CMP, 44279-7 #### [facility] ([id number]) [address], [address] [place], [place] [address]XH0 [Moles/Vol]25 mmol/SYxizcu62-95RwnKzanet [facility] Comment on above:Performed By: #### 2986-8, CMP, 51532-9 #### [facility] ([id number]) [address], [address] [place], [place] [address]Ysbsniuece [Mass/Vol]0.82 mg/dLNormal0.60-1.30ProGalion Community HospitalComment on above:Result Comment: METHOD TRACEABLE TO IDMS STANDARD Performed By: #### 2986-8, ANGELIKA, 94949-3 #### [facility] ([id number]) [address] [place], [place] [address]mRUA (CKD-EPI) NON-RACE DEPENDENT>90Normal>59ProWestern [facility] HospitalComment on above:Result Comment: Reported eGFR is based on the CKD-EPI 2020 equation that does not use a race coefficient.Performed By: #### 2986-8, ANGELIKA, 64172-7 #### [facility] ([id number]) [address], [facility] [address] [place], [place] [address]Jzmgiwu [Mass/Vol]93 mg/wCDnjxwg37-38TbpFymriuMorrow County Hospital Comment on above:Performed By: #### 2986-8, ANGELIKA, 98823-3 #### [facility] ([id number]) [address] [place], [place] [address]Ltjddjjpn [Moles/Vol]3.9 mmol/LNormal3.5-5.0ProGalion Community HospitalComment on above:Performed By: #### 2986-8, ANGELIKA, 49702-5 #### [facility] ([id number]) [address], [facility] [address] [place], [place] [address]Smacsps [Mass/Vol]7.3 g/dLNormal6.0-8.0[facility] Comment on above:Performed By: #### 2986-8, ANGELIKA, 08375-0 #### [facility] ([id number]) [address] [address] [place], [place] [address]Ibqoqf [Moles/Vol]140 mmol/LMczpdb347-408VibJyupkc [place] HospitalComment on above:Performed By: #### 2986-8, ANGELIKA, 91332-5 #### [facility] ([id number]) [address], [address] [place], [place] [address]Uety nitrogen [Mass/Vol]16 mg/dLNormal5-23ProWestern [facility] Hospital HospitalComment on above:Performed By: #### 2986-8, ANGELIKA, 97911-2 #### [facility] ([id number]) [address], [address] [place], [place] [address]Primk 1996 panelon 69-88-0065Zxhiudrmltg [Mass/Vol]190 mg/dL Vfhbix977-914WjtHlrrvy [place] HospitalComment on above:Performed By: #### 2986- 8, ANGELIKA, 09745-7 #### [facility] ([id number]) [address] [place], [place] [address]Zltkbzfovbw in HDL [Mass/Vol]45 mg/dLNormal>39ProGalion Community HospitalComment on above:Result Comment: HDL <40 mg/dL - High Risk HDL > or = 40mg/dL- Desirable HDL >60 mg/dL - Negative Risk Performed By: #### 2986-8, CMP, 41764-8 #### [facility] ([id number]) [address], [address] [place], [place] [address]Tyagbhsuvdx in LDL [Mass/Vol]100 mg/dLNormal<130Pro[facility] HospitalComment on above:Result Comment: LDL <100 mg/dL - Desirable LDL >160 mg/dL - High Risk Performed By: #### 2986-8, CMP, 08590-2 #### [facility] ([id number]) [address] [place], [place] [address]Hnqemmxogpc in VLDL [Mass/Vol]45 mg/dLHigh0-30Pro[facility] HospitalComment on above:Performed By: #### 2986-8, [facility], 62814-9 #### [facility] ([id number]) [address], [address] [place], [place] [address]VJMJWCWREYB:HDL4.0Euzcwn9.0-5.0ProWestern [facility] Hospital HospitalComment on above:Performed By: #### 2986-8, [facility], 31982-9 #### [facility] ([id number]) [address], [address] [place], [place] [address]Wdtwfyrusyme [Mass/Vol]225 mg/nPMzxj61-805KtrCwfvhl [place] HospitalComment on above:Performed By: #### 2986-8, [facility], 07006-9 #### [facility] ([id number]) [address] [place], [place] [address]Wtfdfkeekqzc [Mass/Vol]on 88-64-4011SYBYKVFJFLXM4.98 ng/mLNormal 1.68-7.46ProGalion Community HospitalComment on above:Performed By: #### 2986-8, [facility], 78302-2 #### [facility] ([id number]) [address] [place], [place] [address]Neysol Care Office/Clinic Noteon 23-55-9856Mhitlv Care Office/Clinic NoteChief Complaint PT states left lower abdominal pain and lower back pain starting last night History of Present Illness Patient is a 47-year-old female who presents with complaint of left lower abdominal back pain that started last night. He is concerned he may have a urinary tract infection. He denies nausea vomiting. He reports no diarrhea. He reports he has had a history of constipation in the past. He reports hedid have a bowel movement yesterday. He has not taken any medication for symptom management. Review of Systems General: The patient denies fever HEENT: denies changes in hearing, ear pain, rhinorrhea. Denies double vision, blurred vision or eyepain. Cardiovascular: No swelling of the lower extremities, chest pain, arrhythmia Pulmonary: No shortness of breath, wheezing, GI: No nausea, vomiting or diarrhea POSITIVE left lower quadrant abdominal pain : denies dysuria, bleeding, incontinence Physical Exam Vitals & Measurements T: 36.8 ?C (Oral) HR: 77 (Peripheral) BP: 156/92 SpO2: 95 HT: 173 cm WT: 94 kg WT: 94 kg (Dosing) BMI: 31.41 Eyes: No discoloration or drainage seen Neck: No enlargement of lymph glands Heart sounds: Regular no murmurs Lungs: Clear no wheezes rales or rhonchi Abdomen: Soft, no distention, decreased bowel signs in left lower quadrant, mild tenderness upon palpation with no guarding noted. No organomegaly or masses noted. Patient is able to jump up and downwithout guarding. Adams's sign: Negative, Psoas Sign - negative, Obturator Sign - Negative PROCEDURE: XR - abdomen -stool noted in the colon on my review Radiologist read: FINDINGS: There is a nonobstructive bowel gas pattern. There is no organomegaly, discrete soft tissue mass or pathologic calcification. There is no evidence of free air. Imaged lung bases are clear. There is no acute osseous abnormality. IMPRESSION: Nonspecific abdomen without acute findings. Final Dictated by: Carlos Eduardo Darnell MD Urine Dipstick Urine Color Urine Dipstick : Adore Urine Appearance Urine Dipstick : Clear Glucose Urine Dipstick : Negative Bilirubin Urine Dipstick : Negative Ketones Urine Dipstick : Negative Specific Sherwood Urine Dipstick : 1.025 Blood Urine Dipstick : Negative pH Urine Dipstick : 6 Protein Urine Dipstick : Negative Urobilinogen Urine Dipstick : 0.2 mg/dl Nitrite Urine Dipstick : Negative Leukocytes Urine Dipstick : Negative [1] Additional Vitals BP Position/Location: Sitting Assessment/Plan 1. Abdominal pain, left lower quadrant PLAN: 1) Patient to drink at least 8 glasses of non-caffeinated nonalcoholic beverages per day. 2) Patient to follow diet as instructed, written handout given. 3) Patient to take medications as prescribed: Ordered Rachael Lax - take one scoop (37gm) in large glass of water at bedtime daily until having daily Bowel Movements, then decrease to every other day, every 3rd day to once a week /take as needed tokeep bowels regular. Ordered Colace 100 mg twice a day to soften stools, may decrease to once daily or as needed when bowels are moving daily and softly formed. 3) Patient instructed to follow-up with PCP in 3-5 days if no improvement. 4) Patient instructed to go to the Emergency Department At [facility] if symptoms become worse or any concern deemed emergent. Ordered: Discharge Patient 2. Constipation Follow above plan of care Medical Decision Making Abdominal pain without signs of acute abdomen or appendicitis. History of constipation -x-ray of abdomen shows a large amount of stool in the colon. Chronic conditions NOT treated during this visit that affected my overall medical decision making: [] Treatment plans discussed but not opted for at this time: [] Prescribed medication that requires intensive monitoring for toxicity: [] I have reviewed the patient?s medication list for medication interactions/contraindications and/or for upcoming procedures: [yes] Time Spent with the Patient I have personally spent [21] minutes on this date, directly related to today's patient visit, including pre and post visit work, for this date of service. Time listed does not include time spent on separately billable services. Provider Comments Reviewed assessment and plan of care with patient. Patient verbalized understanding and agreed withplan. No further questions or concerns upon discharge. Problem List/Past Medical History Ongoing No chronic problems Historical No qualifying data Procedure/Surgical History denies Medications No active medications Allergies No Known Allergies Social History Tobacco Never (less than 100 in lifetime) Use:. Family History Family history is negative Lab Results Test Name Test Result Date/Time Urine Color Urine Dipstick Adore 10/01/2022 08:25 EDT Urine Appearance Urine Dipstick Clear 10/01/2022 08:25 EDT Specific [place] Urine Dipstick 1.025 10/01/2022 08:25 EDT pH Urine Dipstick 6 (more content not included)...NormalProvidence HospitalXR Abdomen APon 37-36-1415XQ Abdomen APCLINICAL HISTORY: Lower abdominal pain. EXAMINATION: Frontal images of the abdomen and pelvis were obtained. FINDINGS: There is a nonobstructive bowel gas pattern. There is no organomegaly, discrete soft tissue mass orpathologic calcification. There is no evidence of free air. Imaged lung bases are clear. There is no acute osseous abnormality. IMPRESSION: Nonspecific abdomen without acute findings. Final Dictated by: Carlos Eduardo Darnell MD Dictated DT/TM: 10/01/2022 10:06 am Signed by: Carlos Eduardo Darnell MD Signed (Electronic Signature): 10/01/2022 10:07 am (If Report Is Signed, Electronically Signed in Other Vendor System)[facility] Vital Signs Date TimeVital SignValuePerforming QhuufewglQsnlovui02-26-3028 11:31-0400Body jyggkc370.6 cmJoconstance Bean DO Work Phone: [facility] CiklumBiaiwp93-53-8985 11:31-0400Body mass index (BMI) [Ratio]32.23 kg/m2Paul Bean DO Work Phone: [facility] Rspiqr67-79-7249 11:31-0400Body .6 [degF]Paul Bean DO Work Phone: [facility] Wkokwa05-92-6581 11:31-0400Body pjgnfe48.54 kgJoconstance Bean DO Work Phone: [facility]08-08-2025 11:31-0400Diastolic blood tvefltup54 mm[Hg]Paul Bean DO Work Phone: [facility]08-08-2025 11:31-0400Heart rate 90 /minPaul Bean DO Work Phone: [facility]08-08-2025 11:31-0400 Respiratory rate18 /minPaul Bean DO Work Phone: [facility]08-08-2025 11:31-7553AdP7% (BldA) [Mass fraction]97 %Paul Bean DO Work Phone: [facility] Cbndig69-23-6236 11:31-0400Systolic blood tenrhesq427 mm[Hg]Paul Bean DO Work Phone: [facility]06-11-2025 16:26-0400Body lwirex567.6 cmPaul Bean DO Work Phone: [facility]06-11-2025 16:26-0400Body mass index (BMI) [Ratio]32.3 kg/m2Paul Bean DO Work Phone: [facility]06-11-2025 16:26-0400Body vneipzigdmr54.91 [degF]Paul Bean DO Work Phone: [facility]06-11-2025 16:26-0400Body .72 kgPaul Bean DO Work Phone: [facility]06-11-2025 16:26-0400Diastolic blood ngffjfan28 mm[Hg]Paul Bean DO Work Phone: [facility]06-11-2025 16:26-0400Heart rate 71 /minPaul Bean DO Work Phone: [facility]06-11-2025 16:26-0400 Respiratory rate18 /minPaul Bean DO Work Phone: [facility]06-11-2025 16:26-1255LkC1% (BldA) [Mass fraction]97 %Paul Bean DO Work Phone: [facility]06-11-2025 16:26-0400Systolic blood dujugkil330 mm[Hg]Paul Bean DO Work Phone: [facility]02-13-2025 11:04-0500Body lzpctu833.64 [facility] 11:04-0500Body mass index (BMI) [Ratio]33.3 kg/h9SpflhhiamBluffton Hospital02-13-2025 11:04-0500Body ffxsftvgayr30.5 [degF][facility]02-13-2025 11:04-0500Body jhlexn42.55 kgBl[facility]02-13-2025 11:04-0500Diastolic blood ejlxqwym01 mm[Hg][facility] 07-23-2024 11:04-0500Heart rate66 /[facility] 07-23-2024 11:04-0500Respiratory rate19 /[facility] 07-23-2024 11:04-2339DyN9% (BldA) [Mass fraction]96 %[facility]02-13-2025 11:04-0500Systolic blood lmbgceej282 mm[Hg][facility]07-03-2024 15:41-0400Body mbrufk990.6 cmJoconstance Bean DO Work Phone: [facility] [employer] Fdggld07-54-5614 15:41-0400Body mass index (BMI) [Ratio]32.12 kg/m2Paul Bean DO Work Phone: [facility]07-03-2024 15:41-0400Body zfjqbazsulf82.4 [degF]Paul Bean DO Work Phone: [facility]07-03-2024 15:41-0400Body ipbfxi67.27 kgPaul Bean DO Work Phone: [facility]07-03-2024 15:41-0400Diastolic blood gbfrkalw42 mm[Hg]Paul Bean DO Work Phone: [facility]07-03-2024 15:41-0400Heart rate 69 /minPaul Bean DO Work Phone: [facility]07-03-2024 15:41-0400 Respiratory rate20 /Jennifer Bean DO Work Phone: [facility]07-03-2024 15:41-1964KoC6% (BldA) [Mass fraction]98 %Paul Bean DO Work Phone: [facility]07-03-2024 15:41-0400Systolic blood uejebhzp799 mm[Hg]Paul Bean DO Work Phone: [facility] [place] [address]Gyklag51-82-0887 17:20-0400Body .64 Marylin Moreno Other [employer] Other 04-11-2023 17:20-0400Body mass index (BMI) [Ratio] 32.28 kg/e5YactlAdore Moreno Other [employer] Other 04-11-2023 17:20-0400Body ukjvfmtwvdz99.3 [degF]Adore Moreno Other [employer] Other 04-11-2023 17:20-0400Body qagjfm05.72 kgAdore Moreno Other [employer] Other 04-11-2023 17:20-0400Respiratory rate18 /minAdore Moreno Other [employer] Other 04-11-2023 17:20-6029KsN2% (BldA) [Mass fraction]97 % Adore Moreno Other [employer] Other 12-30-2022 11:55-0500Body zziqgc649.64 Marylin Moreno Other [employer] Other 12-30-2022 11:55-0500Body mass index (BMI) [Ratio] 30.66 kg/d1FeglaAdore Moreno Other [employer] Other 12-30-2022 11:55-0500Body qsncykpregm86.2 [degF]Adore Moreno Other [employer] Other 12-30-2022 11:55-0500Body .18 kgAdore Moreno Other [employer] Other 12-30-2022 11:55-0500Diastolic blood mm[Hg] Adore Moreno Other [employer] Other 12-30-2022 11:55-0500Respiratory rate16 /minAdore Moreno Other [employer] Other 12-30-2022 11:55-8376WdN7% (BldA) [Mass fraction]97 % Adore Moreno Other [employer] Other 12-30-2022 11:55-0500Systolic blood lephdggz405 mm[Hg] Adore Moreno Other [employer] Other 05-24-2022 17:30-0400Body .64 cmMaolivier Noriega Other [employer] Other 05-24-2022 17:30-0400Body mass index (BMI) [Ratio] 31.73 kg/g8Uelzbogveronica Noriega Other [employer] Other 05-24-2022 17:30-0400Body .18 kgMattveronica Noriega Other [employer] Other 05-24-2022 17:30-0400Diastolic blood knadltja08 mm[Hg] Joesph Noriega Other [employer] Other 05-24-2022 17:30-0400Respiratory rate16 /minMattveronica Noriega Other [employer] Other 05-24-2022 17:30-5085VtM6% (BldA) [Mass fraction]96 % Joesph Liumer Other [employer] Other 05-24-2022 17:30-0400Systolic blood mgvycyko639 mm[Hg] Joesph Leann Other [employer] Other 04-25-2022 12:20-0400Body bwcfat382.64 cmPamela Suzie Other [employer] Other 04-25-2022 12:20-0400Body mass index (BMI) [Ratio] 29.86 kg/b7Ckcxsm Suzie Other [employer] Other 04-25-2022 12:20-0400Body nizqanuvcki96.2 [degF]Padma Suzie Other [employer] Other 04-25-2022 12:20-0400Body ehlibk13.92 kgPalennox Suzie Other [employer] Other 04-25-2022 12:20-0400Diastolic blood jmmbzjjy68 mm[Hg] Padma Larsen Other [employer] Other 04-25-2022 12:20-2276QhL2% (BldA) [Mass fraction]99 % Padma Larsen Other [employer] Other 04-25-2022 12:20-0400Systolic blood kjdmrgpo700 mm[Hg] Padma Larsen Other [facility] [employer] Other Encounters Encounter DateEncounter TypeCare ProviderFacilityStart: 36-00-5396ienbwxiegyTPGB L [facility] HospitalStart: 01-16-2025 End: 26-56-9781Bppjji-up encounterPaul Lewiss DO Work Phone: [facility] - Family MedicineComment on above:Lipid profile, Comprehensive metabolic panelStart: 01-15-2025 End: 97-57-4233Vrfegju encounter statusPaul Lewiss DO Work Phone: [facility] [employer] Work Phone: Start: 01-15-2025 End: 40-42-9268Epnsstej preventive med est patient 40-64yrsLucyconstance Lewiss DO Work Phone: [facility] - Family MedicineComment on above:Wellness examination (Primary Dx); Rotator cuff arthropathy of right shoulderStart: 01-15-2025 End: 01-94-1343ytjcrmclmpGQSHGeneva General Hospital Ambulatory PPGStart: 44-33-7476Mzfkxndrc for general adult medical examination without abnormal findingsDay [facility] Ambulatory PPGStart: 69-27-4470arhfgazpqh PAUL [facility]tart: 12-16-2024 End: 07-96-5675Axuhdr-up encounterPaul Lewiss DO Work Phone: [facility] - Family MedicineComment on above:X-ray shoulder right minimum 2 views, X-ray spine cervical 4 or 5 viewsStart: 12-14-2024 End: 38-65-5855ewifcanidwTVLP [facility] Hospitaltart: 11-20-2024 ambulatoryLUCYCONSTANCE [facility] Hospitaltart: 11-18-2024 End: 39-29-0409Djqbgk outpatient visit 25 minutesLucyconstance Lewiss DO Work Phone: [facility] Internal Medicine - Family MedicineComment on above:Rotator cuff arthropathy of right shoulder (Primary Dx); Cervical radiculopathyStart: 11-18-2024 End: 29-71-0501zrumeykqzzZAUZ [facility] PPGStart: 07-23-2024 End: 02-13-8030oahgrbotixBekixztkcCleveland Clinic Work Phone: Start: 07-23-2024 End: 24-23-3627Hdoprdt encounter procedureUnc Health [facility] Work Phone: Start: 00-05-5237fcgjpdqtfaEifokdieufd Abdelaziz Facility:[facility] Hospitaltart: 12-11-2023 End: 00-42-7660fzcmxgqrznEMLT L [facility]: 12-11-2023 Encounter for general adult medical examination without abnormal findingsJOCONSTANCE [facility]: 12-11-2023 End: 25-65-2020Lcwcscq encounter statusJoconstance Bean DO Work Phone: [facility] [employer] [facility] Work Phone: Start: 12-11-2023 End: 54-56-1150Axvxspom preventive med est patient 18-39 yrsJoconstance Sharda Bean DO Work Phone: [facility] Internal Medicine - Family MedicineComment on above:Wellness examination (Primary Dx); Other fatigue; Obesity (BMI 30.0-34.9)Start: 10-01-2022 End: 05-25-8790jkgakbnclfOxirPete Savage APRN-[employer]TR[employer] SU[employer]PLY WORKER Facility:[facility]: 09-18-2022 End: 15-40-8141hiaivuqfroSxjmp Keller Other [employer] Other Start: 40-89-0474Zpfxwv outpatient visit 15 minutes Adore Veloz [facility] ClydeStart: 06-08-2022 End: 35-37-3332nwizkgzozyHoxqm Keller Other [facility] [employer] Other Start: 77-76-6770Yywjki outpatient visit 15 minutes Adore SoydellaFPAga [facility] ClydeStart: 12-18-2021 End: 92-22-3520tckhustuakRqgvghm Widmer Other [facility] [employer] Other Start: 76-36-1377Kfyixogzw encounterMattveronica AlexamerariFPG [facility] HospitalStart: 10-31-2021 End: 03-76-6817snmslbgocqGxylpqx Leann Other [facility] [employer] Other Start: 82-80-1602Jifxyk outpatient visit 15 minutes Joesph LeannFPG [facility] HospitalStart: 10-02-2021 End: 91-11-7242zealzoutvoLtlved Dymond Other [facility] [employer] Other Start: 28-66-1300Mlzrui outpatient visit 15 minutes Padma LarsenFPG [facility] Procedures DateProcedureProcedure DetailPerforming ClinicianStart: 59-53-7439Xurti depression screening assessmentPaul Vincenzo DO Work Phone: Start: 93-03-0427Ttxix depression screening assessment Paul Bean DO Work Phone: Start: 28-75-0185Fjvnq depression screening assessment Paul Bean DO Work Phone: Plan of Treatment DateCare ActivityDetailAuthorStart: 34-73-2629KYwY,Tdap and Td Vaccines (2 - Td or Tdap)DTaP,Tdap and Td Vaccines (2 - Td or Tdap)[facility] SystemStart: 03-72-7686Rjclc BMI ScreeningAdult BMI ScreeningProJoint Township District Memorial Hospital SystemStart: 20-41-7186Nytlkinfnp ScreeningDepression ScreeningProJoint Township District Memorial Hospital SystemStart: 86-27-3157Qakzlxg ScreeningTobacco ScreeningMercy Health Tiffin Hospital SystemStart: 72-52-7948Dmzsunuhk vaccinationInfluenza VaccineMercy Health Tiffin Hospital SystemStart: 29-67-1361Qaxyt BMI ScreeningAdult BMI ScreeningMercy Health Tiffin Hospital SystemStart: 73-27-4617Chlifhkois ScreeningDepression ScreeningMercy Health Tiffin Hospital SystemStart: 60-75-1962Nsarvsh ScreeningTobacco ScreeningMercy Health Tiffin Hospital SystemStart: 33-41-7115Kjzqjqaho vaccinationInfluenza VaccineMercy Health Tiffin Hospital SystemStart: 91-24-6879Jfxvo BMI Follow Up PlanAdult BMI Follow Up [facility] End: 38-66-0711Xuognbvuacewl metabolic 2000 panel - Serum or PlasmaComprehensive metabolic panel Lab Routine Wellness examination 1 Occurrences starting 12/11/2023 until 12/10/2024[facility] [employer] [facility] HospitalComment on above:1 Occurrences starting 12/11/2023 until 12/10/2024 End: 23-87-6930Xrlhcuztyjgss metabolic 1999 panel - Serum or PlasmaComprehensive metabolic panel Lab Routine Wellness examination 1 Occurrences starting 01/15/2025 until 01/15/2026Q Interactive Phone: Comment on above:1 Occurrences starting 01/15/2025 until 01/15/2026omprehensive metabolic 1999 panel - Serum or Plasma Comprehensive metabolic panel Lab Routine Wellness examination 01/15/2025 11:56 [facility] [employer] [facility] End: 02-49-1793Podqf 1995 panel - Serum or PlasmaLipid profile Lab Routine Wellness examination 1 Occurrences starting 12/11/2023 until 12/10/2024[facility] [employer] [facility] HospitalComment on above:1 Occurrences starting 12/11/2023 until 12/10/2024 End: 58-94-9789Ozzcu 1995 panel - Serum or PlasmaLipid profile Lab Routine Wellness examination 1 Occurrences starting 01/15/2025 until 01/15/2026[facility] [employer] [facility] HospitalComment on above:1 Occurrences starting 01/15/2025 until 01/15/2026Lipid 1995 panel - Serum or PlasmaLipid profile Lab Routine Wellness examination 01/15/2025 11:56 AM [facility] End: 51-89-9572Brfqzgpzasvw [Mass/volume] in Serum or PlasmaTestosterone Lab Routine Other fatigue 1 Occurrences starting 12/11/2023 until 12/10/2024 [facility] Work Phone: Comment on above:1 Occurrences starting 12/11/2023 until 12/10/2024 Immunizations Immunization DateImmunizationNotesCare CbyslmqnJlporpsw93-06-4605jrpiqfk toxoid, reduced diphtheria toxoid, and acellular pertussis vaccine, adsorbedAdore Moreno Other [facility] Payers DatePayer CategoryPayerPolicy [id number] - PPOANTHEM Member Subscriber Plan / Payer (Effective 2024-Present) Name: Sean Ceballos Relation to Subscriber: Self Name: Sean Ceballos Payer ID: [id number] (NAIC) Type: Not on file Address: [facility] [id number] [place] [id number] [id number]-zxb92-56-4304Mvfvrbe63-17-8521Nqjr Cross Blue Shield [id number] ..[id number] [id number] .1.482505.3.57[id number] 2..1.489936.3.57[id number] ..1.174373.3.57[id number] 2..840.1.287385.3.57[id number] 2..840.1.033331.3.57[id number] 2..840.1.688992.3.57[id number] 2..840.1.157518.3.57[id number] 2..840.1.119259.3.57[id number] 2..840.1.5294[id number] 2.840.1.964319.19Unknown [id number] 2..840.1.427237.3.579.2.531 Social History DateTypeDetailFacilityStart: 2020 End: 24-63-0228Dgv Assigned At [facility] [employer] Other Tobacco smoking status NHISUnknown if ever smoked [facility] Work Phone: Start: 01-13-2015 End: 64-34-5352GytNutu (finding)[facility] Hospitaltart: 71-72-2815Qwe [facility]igned At [facility] Systemtart: 45-04-3797Zgmhyoz smoking status NHISEx-smokerProMedica Health SystemHistory of tobacco useCurrent smokerProMediWadsworth-Rittman Hospital SystemHistory of tobacco useCigarette SmokerProJoint Township District Memorial Hospital SystemStart: 2020 End: 96-62-8947Dwrrgvvvxg smoked current (pack per day) - Qzfslumc2AcbXxwjch Health SystemStart: 54-68-5926Jqqcntv use and exposureSmokeless tobacco non-user [facility] SystemStart: 12-11-2023 End: 98-06-2780Jgocbnjia beverage intakeCurrent drinker of alcohol (finding) [facility] HospitalAdolescent depression screening cndcqejsig5LrfIamaexNorth Carolina Specialty Hospitaltart: 35-06-8065Rloazev CommentrarePSelect Specialty Hospital - Winston-Salemtart: 54-13-5910Nxq assigned at birthNot on fileNorth Carolina Specialty Hospitaltart: 45-43-8336Actytae CommentweekGerman Hospital Clinical Notes 10-02-2021 to 01-16-2025 Note Date & IjjiHlwkDdeywvfn06-75-2620 Miscellaneous Notes* Telephone Encounter - Monica Alexandre CMA - 01/16/2025 10:12 AM EDT ----- Message from Paul Bean DO sent at 01/16/2025 10:18 AM EDT ----- Reviewed. His blood work is a mixed picture. His kidney and electrolytes are normal. His blood sugar is high at 140 mg/dL, but this was not a fasting test. Similarly, his cholesterol and LDL levels were higher than previous, but his overall risk for heartattack and stroke is 2.7%, which is considered low. No medications or active treatment is needed at this time. ----- Message ----- From: Lab, Background User Sent: 01/15/2025 6:51 PM EDT To: Paul Bean DO * Telephone Encounter - Monica Alexandre CMA - 01/16/2025 10:12 AM EDT I spoke with pt and he understood results. documented in this encounterProMedica [facility] Hospital08-09-2025 Telephone encounter Note* Telephone Encounter - Monica Alexandre CMA - 01/16/2025 10:12 AM EDT ----- Message from Paul Bean DO sent at 01/16/2025 10:18 AM EDT ----- Reviewed. His blood work is a mixed picture. His kidney and electrolytes are normal. His blood sugar is high at 140 mg/dL, but this was not a fasting test. Similarly, his cholesterol and LDL levels were higher than previous, but his overall risk for heartattack and stroke is 2.7%, which is considered low. No medications or active treatment is needed at this time. ----- Message ----- From: Lab, Background User Sent: 01/15/2025 6:51 PM EDT To: Paul Bean DO [facility]08-09-2025 Telephone encounter Note* Telephone Encounter - Monica Alexandre CMA - 01/16/2025 10:12 AM EDT I spoke with pt and he understood results. [employer] [id number] History of Present illness Narrative* Paul Bean DO - 01/15/2025 11:30 AM EDT IM PROGRESS NOTE Patient - Sean Ceballos Age - 49 y.o. - 1975 ASSESSMENT & PLAN Patient presented to office today for Annual Adult Wellness Visit. Education was provided on healthy nutrition, including a diet rich in fruits and vegetables, minimizing simple carbohydrates, salt, and saturated fats. Encouraged regular cardiovascular exercise suchas walking at least 30 minutes daily, 5 times per week - goal. Emphasized preventive health measures reduce health risks and promote healthy living. Goal for pt. is to achieve healthy BMI of 25 or under to reduce risk of developing diabetes and cardiovascular diseases. 1. Wellness examination (Primary) -I reviewed health maintenance activities appropriate for a 49-year-old male. Is up-to-date on colon cancer screening. I did advise him to see Ophthalmology to evaluate for medical diseases of the eye in addition to any on coming refractory errors. -lab work for screening will be done today. - Comprehensive metabolic panel; Future - Lipid profile; Future - Lipid profile - Comprehensive metabolic panel 2. Rotator cuff arthropathy of right shoulder -continue physical therapy as ordered. Symptoms are improving, although slowly -if symptoms do not go away after completing therapy, we will proceed with an MRI of his shoulder Subjective 49-year-old male presents for yearly wellness visit. He has no long-term complaints. Is able to continue working without any issues. Has not had to alter activities at his job or at home because of new problems. His sleep is good. Bowels functioning regularly. No problems with urination. -he has noticed some difficulty reading fine print, and has had to get some Cheater glasses -he has been going to physical therapy because of right shoulder arthropathy. He feels it is improved, but still not back to normal. Still has low-grade ache with overuse, which will sometimes improve with rest. A review of systems was negative Musculoskeletal: joint stiffness and noted in the right shoulder. Exam BP 118/68 (BP Site: Left Arm, BP Postition: Sitting, BP CUFF SIZE: S (7-9 inches)) Pulse 90 Temp 37 C (98.6 F) (Tympanic) Resp 18 Ht 167.6 cm (5' 5.98 ) Wt 90.5 kg (199 lb 9.6 oz) SpO2 97% BMI 32.23 kg/m Physical Exam Vitals reviewed. Constitutional: General: He is not in acute distress. Appearance: He is well-developed. He is obese. He is not toxic-appearing. HENT: Head: Normocephalic. Right Ear: External ear normal. Left Ear: External ear normal. Nose: Nose normal. Mouth/Throat: Mouth: Mucous membranes are moist. Eyes: General: No scleral icterus. Comments: VA: 20/20 bilateral 20/20 right eye 20/20 left eye Neck: Vascular: No carotid bruit. Comments: ROM: Left rotation 90 Right rotation 75 Extension 30 Flexion 15 Cardiovascular: Rate and Rhythm: Normal rate and regular rhythm. Heart sounds: No murmur heard. No gallop. Pulmonary: Effort: Pulmonary effort is normal. Breath sounds: No wheezing or rales. Abdominal: Palpations: Abdomen is soft. Musculoskeletal: Cervical back: No tenderness (Right supraspinatus). Right lower leg: No edema. Left lower leg: No edema. Lymphadenopathy: Cervical: No cervical adenopathy. Skin: General: Skin is warm and dry. Coloration: Skin is not jaundiced. Findings: No bruising. Neurological: Mental Status: He is alert and oriented to person, place, and time. Motor: No weakness. Coordination: Coordination normal. Deep Tendon Reflexes: Reflexes are normal and symmetric. Psychiatric: Mood and Affect: Mood normal. Behavior: Behavior normal. Meds Current Outpatient Medications: meloxicam (MOBIC) 15 mg tablet, Take 1 tablet (15 mg total) by mouth in the morning. (Patient not taking: Reported on 01/15/2025), Disp: 30 tablet, Rfl: 2 Lab Results No visits with results within 1 Month(s) from this visit. Latest known visit with results is: Hospital Outpatient Visit on 12/11/2023 Component Date Value Ref Range Status Cholesterol 12/11/2023 190 150 - 200 mg/dL Final Triglycerides 12/11/2023 225 (H) 27 - 150 mg/dL Final HDL Cholesterol 12/11/2023 45 >39 mg/dL Final VLDL 12/11/2023 45 (H) 0 - 30 mg/dL Final LDL (calc) 12/11/2023 100 <130 mg/dL Final Cholesterol:HDL Ratio 12/11/2023 4.2 1.0 - 5.0 Final Sodium 12/11/2023 140 134 - 146 mmol/L Final Potassium, Bld 12/11/2023 3.9 3.5 - 5.0 mmol/L Final Chloride 12/11/2023 105 98 - 109 mmol/L Final CO2 12/11/2023 25 22 - 32 mmol/L Final Anion gap 12/11/2023 10 5 - 15 mmol/L Final BUN 12/11/2023 16 5 - 23 mg/dL Final Creatinine 12/11/2023 0.82 0.60 - 1.30 mg/dL Final Glucose 12/11/2023 93 65 - 99 mg/dL Final Calcium 12/11/2023 9.6 8.5 - 10.5 mg/dL Final Total Protein 12/11/2023 7.3 6.0 - 8.0 g/dL Final Albumin 12/11/2023 4.6 3.2 - 5.3 g/dL Final Alkaline Phosphatase 12/11/2023 44 39 - 130 U/L Final AST 12/11/2023 23 0 - 41 U/L Final ALT 12/11/2023 31 0 - 40 U/L Final Total bilirubin 12/11/2023 0.6 0.3 - 1.2 mg/dL Final eGFR (CKD-EPI)non-race dependent 12/11/2023 >90 >59 ml/min/1.73sq.m Final Testosterone 12/11/2023 1.98 1.68 - 7.46 ng/mL Final Other Testing No results found. Paul Bean DO., [facility]: [phone] documented in this encounterProMedica [facility] Hospital06-11-2025 History of Present illness Narrative* Paul Bean DO - 11/18/2024 4:15 PM EDT IM PROGRESS NOTE Patient - Sean Ceballos Age - 49 y.o. - 1975 ASSESSMENT & PLAN 1. Rotator cuff arthropathy of right shoulder (Primary) -patient with symptoms suggesting rotator cuff arthropathy due to overuse -advised patient to use ice pack/cold pack to the right shoulder 30 minutes as much as possible when not working -start meloxicam 15 mg daily every evening -start PT for evaluation and treatment -if symptoms not improving over the next 2-3 weeks, we need to proceed with imaging including MRI of the shoulder and cervical spine - Ambulatory referral to Physical Therapy; Future - meloxicam (MOBIC) 15 mg tablet; Take 1 tablet (15 mg total) by mouth in the morning. Dispense: 30tablet; Refill: 2 2. Cervical radiculopathy -does have some limited motion in rotation to the right, as well as loss of DTR at the biceps and brachioradialis consistent with a C5-6 radiculopathy on the right -start Mobic and PT as above -if no improvement, will need imaging of the cervical spine Subjective 49-year-old male presents for evaluation of right shoulder problems. These have been occurring for the past 1-2 months. No specific injury, but has gradually been noticing aching in the posterior right shoulder in the evening after he is working, and when he tries to sleep at night. He describes itas an aching sensation, with occasional tingling. Located in the right lower neck area radiating tothe back of the shoulder and into the back of his right arm. -no specific injury triggering this -he has never had this discomfort in the past -has a history of bilateral shoulder separation, which occurred approximately 20 years ago while snowboarding. -works for [employer]. He is right-handed. -he is not taking any pain medication, or tried any self treatments. -is having difficulty sleeping because of the discomfort A review of systems was negative except for the following: Musculoskeletal: joint pain, joint stiffness, and noted in the right shoulder and right neck area. Exam BP 120/78 (BP Site: Left Arm, BP Postition: Sitting, BP CUFF SIZE: L (13-17 inches)) Pulse 71 Temp 37.2 C (98.9 F) (Oral) Resp 18 Ht 167.6 cm (5' 5.98 ) Wt 90.7 kg (200 lb) SpO2 97% BMI32.30 kg/m Physical Exam Vitals reviewed. Constitutional: General: He is not in acute distress. Appearance: He is well-developed. He is obese. He is not toxic-appearing. HENT: Head: Normocephalic. Right Ear: External ear normal. Left Ear: External ear normal. Nose: Nose normal. Eyes: General: No scleral icterus. Neck: Comments: ROM: Left rotation 90 Right rotation 75 Extension 30 Flexion 30 Cardiovascular: Rate and Rhythm: Normal rate and regular rhythm. Pulses: Normal pulses. Heart sounds: No murmur heard. No gallop. Pulmonary: Effort: Pulmonary effort is normal. Breath sounds: Normal breath sounds. Abdominal: General: Bowel sounds are normal. Palpations: Abdomen is soft. Musculoskeletal: General: Tenderness (Posterior right shoulder, and lateral right shoulder.) present. No swelling. Cervical back: Tenderness (Right C5, C6 and C7 paraspinal muscles) present. Comments: Right shoulder ROM: Flexion 180 . Abduction 120 Internal rotation 45 External rotation 45 Lymphadenopathy: Cervical: No cervical adenopathy. Skin: General: Skin is warm and dry. Coloration: Skin is not jaundiced. Findings: No bruising. Neurological: Mental Status: He is alert and oriented to person, place, and time. Sensory: No sensory deficit (No loss of pinprick sensation in any dermatome of the right arm). Deep Tendon Reflexes: Reflexes abnormal (Biceps absent right; 2+/4 left. Brachioradialis absent right; 2+/4 left. Triceps 2+/4 bilateral.). Psychiatric: Mood and Affect: Mood normal. Behavior: Behavior normal. Meds Current Outpatient Medications: meloxicam (MOBIC) 15 mg tablet, Take 1 tablet (15 mg total) by mouth in the morning., Disp: 30 tablet, Rfl: 2 Lab Results No visits with results within 1 Month(s) from this visit. Latest known visit with results is: Hospital Outpatient Visit on 12/11/2023 Component Date Value Ref Range Status Cholesterol 12/11/2023 190 150 - 200 mg/dL Final Triglycerides 12/11/2023 225 (H) 27 - 150 mg/dL Final HDL Cholesterol 12/11/2023 45 >39 mg/dL Final VLDL 12/11/2023 45 (H) 0 - 30 mg/dL Final LDL (calc) 12/11/2023 100 <130 mg/dL Final Cholesterol:HDL Ratio 12/11/2023 4.2 1.0 - 5.0 Final Sodium 12/11/2023 140 134 - 146 mmol/L Final Potassium, Bld 12/11/2023 3.9 3.5 - 5.0 mmol/L Final Chloride 12/11/2023 105 98 - 109 mmol/L Final CO2 12/11/2023 25 22 - 32 mmol/L Final Anion gap 12/11/2023 10 5 - 15 mmol/L Final BUN 12/11/2023 16 5 - 23 mg/dL Final Creatinine 12/11/2023 0.82 0.60 - 1.30 mg/dL Final Glucose 12/11/2023 93 65 - 99 mg/dL Final Calcium 12/11/2023 9.6 8.5 - 10.5 mg/dL Final Total Protein 12/11/2023 7.3 6.0 - 8.0 g/dL Final Albumin 12/11/2023 4.6 3.2 - 5.3 g/dL Final Alkaline Phosphatase 12/11/2023 44 39 - 130 U/L Final AST 12/11/2023 23 0 - 41 U/L Final ALT 12/11/2023 31 0 - 40 U/L Final Total bilirubin 12/11/2023 0.6 0.3 - 1.2 mg/dL Final eGFR (CKD-EPI)non-race dependent 12/11/2023 >90 >59 ml/min/1.73sq.m Final Testosterone 12/11/2023 1.98 1.68 - 7.46 ng/mL Final Other Testing No results found. Paul Bean DO., [facility] Phys[facility] Office: [phone] documented in this [facility]Day[facility]3FLOZ [id number] History of Present illness Narrative* Paul Bean DO - 12/11/2023 3:45 PM EDT IM PROGRESS NOTE Patient - Sean Ceballos Age - 48 y.o. - 1975 ASSESSMENT & PLAN Patient presented to office today for Annual Adult Wellness Visit. Education was provided on healthy nutrition, including a diet rich in fruits and vegetables, minimizing simple carbohydrates, salt, and saturated fats. Encouraged regular cardiovascular exercise suchas walking at least 30 minutes daily, 5 times per week - goal. Emphasized preventive health measures reduce health risks and promote healthy living. Goal for pt. is to achieve healthy BMI of 25 or under to reduce risk of developing diabetes and cardiovascular diseases. 1. Wellness examination -health maintenance recommendations a 48-year-old male were reviewed with the patient. Is up-to-date on all recommended items. -will perform some screening lab tests today. - Comprehensive metabolic panel; Future - Lipid profile; Future 2. Other fatigue -persistent. Will recheck testosterone level, previously was at low end of normal. - Testosterone; Future Subjective 48-year-old male presents for annual wellness visit. 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 His main complaints today are: -trouble reading small print or any print up close. Has to extend his arm in order to read. Did buysome [employer] glasses which have helped. -late last year, had problems with swelling on the anterior right knee. Was seen by Orthopedics anddetermined to have a pre patellar bursitis. Probably from constant kneeling on the right knee when at work. He iced it, wore a brace and it gradually improved. Tries to avoid kneeling on the right knee at all times. -continues to have fatigue. Usually by the end of the day. Often has to drink an energy drink in order to make it through the evening. Was evaluated for sleep apnea last year which was unremarkable. Had thyroid and testosterone level checked at that time both of which were normal. A review of systems was negative except for the following: General: fatigue Ophthalmic: Problems with close vision Musculoskeletal: Swelling anterior right knee with prolonged kneeling. Exam BP 120/60 (BP Site: Left Arm, BP Postition: Sitting) Pulse 69 Temp 36.9 C (98.4 F) (Oral) Resp 20 Ht 167.6 cm (5' 6 ) Wt 90.3 kg (199 lb) SpO2 98% BMI 32.12 kg/m Physical Exam Vitals reviewed. Constitutional: General: He is not in acute distress. Appearance: He is well-developed. He is obese. He is not toxic-appearing. HENT: Head: Normocephalic. Right Ear: External ear normal. Left Ear: External ear normal. Nose: Nose normal. Mouth/Throat: Mouth: Mucous membranes are moist. Eyes: General: No scleral icterus. Comments: VA: 20/20 bilateral 20/20 right eye 20/20 left eye Neck: Vascular: No carotid bruit. Cardiovascular: Rate and Rhythm: Normal rate and regular rhythm. Heart sounds: No murmur heard. No gallop. Pulmonary: Effort: Pulmonary effort is normal. Breath sounds: No wheezing or rales. Abdominal: Palpations: Abdomen is soft. Musculoskeletal: Cervical back: Normal range of motion. Right lower leg: No edema. Left lower leg: No edema. Lymphadenopathy: Cervical: No cervical adenopathy. Skin: General: Skin is warm and dry. Coloration: Skin is not jaundiced. Findings: No bruising. Neurological: Mental Status: He is alert and oriented to person, place, and time. Motor: No weakness. Coordination: Coordination normal. Deep Tendon Reflexes: Reflexes are normal and symmetric. Psychiatric: Mood and Affect: Mood normal. Behavior: Behavior normal. Meds No current outpatient medications on file. Lab Results No visits with results within 1 Month(s) from this visit. Latest known visit with results is: Hospital Outpatient Visit on 04/03/2023 Component Date Value Ref Range Status Testosterone 04/03/2023 2.69 1.68 - 7.46 ng/mL Final TSH 04/03/2023 2.38 0.49 - 4.67 uIU/mL Final T4, free 04/03/2023 0.99 0.61 - 1.60 ng/dL Final Cholesterol 04/03/2023 214 (H) 150 - 200 mg/dL Final Triglycerides 04/03/2023 199 (H) 27 - 150 mg/dL Final HDL Cholesterol 04/03/2023 54 >39 mg/dL Final VLDL 04/03/2023 40 (H) 0 - 30 mg/dL Final LDL (calc) 04/03/2023 120 <130 mg/dL Final Cholesterol:HDL Ratio 04/03/2023 4.0 1.0 - 5.0 Final Sodium 04/03/2023 139 134 - 146 mmol/L Final Potassium, Bld 04/03/2023 4.0 3.5 - 5.0 mmol/L Final Chloride 04/03/2023 104 98 - 109 mmol/L Final CO2 04/03/2023 26 22 - 32 mmol/L Final Anion gap 04/03/2023 9 5 - 15 mmol/L Final BUN 04/03/2023 12 5 - 23 mg/dL Final Creatinine 04/03/2023 0.85 0.60 - 1.30 mg/dL Final Glucose 04/03/2023 103 (H) 65 - 99 mg/dL Final Calcium 04/03/2023 9.5 8.5 - 10.5 mg/dL Final Total Protein 04/03/2023 7.2 6.0 - 8.0 g/dL Final Albumin 04/03/2023 4.8 3.2 - 5.3 g/dL Final Alkaline Phosphatase 04/03/2023 56 39 - 130 U/L Final AST 04/03/2023 29 0 - 41 U/L Final ALT 04/03/2023 62 (H) 0 - 40 U/L Final Total bilirubin 04/03/2023 0.7 0.3 - 1.2 mg/dL Final eGFR (CKD-EPI)non-race dependent 04/03/2023 >90 >59 ml/min/1.73sq.m Final Other Testing No results found. Paul Bean DO., [facility] Phys[facility] Office: [phone] documented in this encounterBrightlook HospitalBigDNA04-24-2023 NotePatient Education Materials Name: Sean Ceballos Current Date: 10/01/2022 17:01:35 Liza[facility] : 1975 The following sheet(s) are the Patient Education Leaflets for Sean Ceballos Ambulatory Constipation (Adult) Constipation means that you have bowel movements that are less frequent than usual. Stools often become very hard and difficult to pass. Constipation is very common. At some point in life, it affects almost everyone. Since everyone's bowel habits are different, what is constipation to one person may not be to another. Your healthcare provider may do tests to diagnose constipation. It depends on what he or she finds when evaluating you. Symptoms of constipation include: ? Abdominal pain ? Bloating ? Vomiting ? Painful bowel movements ? Itching, swelling, bleeding, or pain around the anus Causes Constipation can have many causes. These include: ? Diet low in fiber ? Too much dairy ? Not drinking enough liquids ? Lack of exercise or physical activity (especially true for older adults) ? Changes in lifestyle or daily routine, including , aging, work, and travel ? Frequent use or misuse of laxatives ? Ignoring the urge to have a bowel movement or delaying it until later ? Medicines, such as certain prescription pain medicines, iron supplements, antacids, certain antidepressants, and calcium supplements ? Diseases like irritable bowel syndrome, bowel obstructions, stroke, diabetes, thyroid disease, Parkinson disease, hemorrhoids, and colon cancer Complications Potential complications of constipation can include: ? Hemorrhoids ? Rectal bleeding from hemorrhoids or anal fissures (skin tears) ? Hernias ? Dependency on laxatives ? Chronic constipation ? Fecal impaction, a severe form of constipation in which a large amount of hard stool is in your rectum that you can't pass ? Bowel obstruction or perforation Home care All treatment should be done after talking with your healthcare provider. This is especially true if you have another medical problems, are taking prescription medicines, or are an older adult. Treatment most often involves lifestyle changes. You may also need medicines. Your healthcare provider will tell you which will work best for you. Follow the advice below to help avoid this problem in the future. Lifestyle changes These lifestyle changes can help prevent constipation: ? Diet. Eat a high-fiber diet, with fresh fruit and vegetables, and reduce dairy intake, meats, andprocessed foods ? Fluids. It's important to get enough fluids each day. Drink plenty of water when you eat more fiber. If you are on diet that limits the amount of fluid you can have, talk about this with your healthcare provider. ? Regular exercise. Check with your healthcare provider first. Medicines Take any medicines as directed. Some laxatives are safe to use only every now and then. Others can be taken on a regular basis. While laxatives don't cause bowel dependence, they are treating the symptoms. So your constipation may return if you don't make other changes. Talk with your healthcare provider or pharmacist if you have questions. Prescription pain medicines can cause constipation. If you are taking this kind of medicine, ask your healthcare provider if you should also take a stool softener. Medicines you may take to treat constipation include: ? Fiber supplements ? Stool softeners ? Laxatives ? Enemas ? Rectal suppositories Follow-up care Follow up with your healthcare provider if symptoms don't get better in the next few days. You may need to have more tests or see a specialist. Call 911 Call 911 if any of these occur: ? Trouble breathing ? Stiff, rigid abdomen that is severely painful to touch ? Confusion ? Fainting or loss of consciousness ? Rapid heart rate ? Chest pain When to seek medical advice Call your healthcare provider right away if any of these occur: ? Fever of 100.4?F (38?C) or higher, or as directed by your healthcare provider ? Failure to resume normal bowel movements ? Pain in your abdomen or back gets worse ? Nausea or vomiting ? Swelling in your abdomen ? Blood in the stool ? Black, tarry stool ? Involuntary weight loss ? Weakness ? [id number] [employer]. [address] [place] [address], [place] [address]. All rights reserved. This information is not intended as a substitute for professional medical care. Always follow your healthcare professional's instructions. 1. Abdominal pain, left lower quadrant PLAN: 1) Patient to drink at least 8 glasses of non-caffeinated nonalcoholic beverages per day. 2) Patient to follow diet as instructed, written handout given. 3) Patient to take medications as prescribed: Ordered Rachael Lax - take one scoop (37gm) in large glass of water at bedtime daily until having daily Bowel Movements, then decrease to every other day, every (more content not included)...[facility]04-11-2023 Evaluation note* Encounter Date Diagnosis Assessment Notes Treatment Notes Treatment Clinical Notes Sep, Abrasion of left forearm, initia l encounter (ICD-10 - S50.812A) Discussed diagnosis with patient. No signs of infection present today on exam. Tetanus updated today in office. Advised to clean area twice a day with soap and water. May keep open to air or cover ifdoing anything dirty. Follow-up if signs/symptoms of infection occur. Immediate evaluation in ER for signs/symptoms as discussed. Patient verbalizes understanding and is agreeable with treatment plan. [employer] Other 12-30-2022 Evaluation note* Encounter Date Diagnosis Assessment Notes Treatment Notes Treatment Clinical Notes May, Exacerbation of gout (ICD-10 - M 10.9) Discussed diagnosis with patient and instructed to take Rx as directed with food - do not take any additional NSAIDS (ibuprofen, naproxen, aspirin) while taking Medrol. Potential side effects of Medrol discussed. Ice or a cold pack on the area for 10 to 20 minutes at a time. Put a thin cloth between the ice and your skin. Elevate leg on a pillow when you ice it or anytime you sit or lie down. Avoid activities that put weight or strain on the joint for a few days, take rest breaks from regular activities during the day. Eat low purine diet, refrain from drinking alcohol or sugary drinks, increase water intake. Follow up with PCP in 3-4 days if symptoms do not improve. Seek immediate evaluation if fever, severe pain, symptoms in new areas/joints, rash, abdominal/flank pain, nausea/vomiting, red streaking, drainage or any new or concerning symptoms. Patient verbalizes understanding and is agreeable to treatment plan May,therGout home care material was printed [employer] Other 07-11-2022 Evaluation note* Encounter Date Diagnosis Assessment Notes Treatment Notes Treatment Clinical Notes Dec, Cervical radicular pain (ICD-10 - M54.12) [employer] Other 05-24-2022 Evaluation note* Encounter Date Diagnosis Assessment Notes Treatment Notes Treatment Clinical Notes October, Cervical radicular pain (ICD-10 - M54.12) Stop Diclofenac as it isn't helping and will increase Gabapenting to 600 mg nightly. Call if helping. October,ight hand paresthesia (ICD-10 - R20.2)Neil order an EMG to assess numbness. [employer] Other 04-25-2022 Evaluation note* Encounter Date Diagnosis Assessment Notes Treatment Notes Treatment Clinical Notes Sep, Cervical radiculopathy (ICD-10 - M54.12) Take the prednisone as prescribed until gone. You may take Tylenol or ibuprofen as needed for pain.Follow-up with family practice if no improvement in 3 to 4 days. Go to the ER for worsening symptoms or concerns [employer] Other Evaluation noteNo assessment information available [facility] Work Phone: Evaluation note* Diagnosis Wellness examination- Primary Other fatigue Obesity (BMI 30.0-34.9) [facility] Diagnosis Rotator cuff arthropathy of right shoulder- Primary Cervical radiculopathy Brachial neuritis or radiculitis nos [facility] Diagnosis Wellness examination- Primary Rotator cuff arthropathy of right shoulder documented in this encounter [facility] SystemInstructionsNot on filedocumented in this encounter [facility]ructionsNot on filedocumented in this encounter [facility]Not on filedocumented in this encounter [facility] filedocument[facility] Summary Purpose Family History Relationship Condition Age at Onset Recorded Date/T shantanu father Unknown Heart diseaseUnknownDiabetes mellitusUnknown Advance Directives Advance Directive Response Recorded Date/ Time Advance Directives No October 11, 2021 1:29pm Chief Complaint and Reason for Visit Chief Complaint Admit Date Cough, congesetion July 23, 2024 10:53am Additional Source Comments REASON FOR VISIT (unrecogniz ed section and content) ReasonCommentsAnnual ExamBp checkReasonCommentsShoulder PainFew months.Can't sleep much at night. Pain scale-9. On and offReasonCommentswellness (unrecognized sect ion and content) No Status Records FoundNo Status Records FoundNo Status Records FoundNo Status Records FoundNo Status Records Found INFORMATION SOURCE (unrecogn ized section and content) DATE CREATED AUTHOR 10/22/2022 [facility] DATE CREATED AUTHOR AUTHOR'S ORGANIZ ATION 12/13/2023 [facility] DATE CREATED AUTHOR AUTHOR'S ORGANIZ ATION 04/22/2024 [facility] DATE CREATED AUTHOR AUTHOR'S ORGANIZ ATION 01/17/2025 [facility] DATE CREATED AUTHOR AUTHOR'S ORGANIZ ATION 02/15/2025 [facility] Care Teams (unrecognized sec tion and content) Team Status: Active Member Role Status Dates PHYSICIAN NO FAMILY Primary Care Provider Active Team Status: Inactive Member Role Status Dates PHYSICIAN NO FAMILY Primary Care Provider Active Start: July 23, 2024 End: July 23, 2024Jaylene Hinton ProviderActiveStart: July 23, 2024 End: July 23, 2024Team MemberRelationshipSpecialtyStart DateEnd Date Paul Bean DO [address] [place] [address] PCP - GeneralInternal Prpdkhdd05/25/23Team MemberRelationshipSpecialtyStart Date End Date Paul Bean DO [address] [place] [address] PCP - GeneralInternal Cdmdtptf06/25/23Te MemberRelationshipSpecialtyStart Date End Date Paul Bean DO [address] [place] [address] PCP - [facility]04/03/23Te MemberRelationshipSpecialtyStart Date End Date Paul Bean DO [address] [place] [address] PCP - [facility]04/03/23Te MemberRelationshipSpecialtyStart Date End Date Paul Bean DO [address] [place] [address] PCP - [facility]04/03/23 Goals (unrecognized section and content) Goals may be documented in a n alternate section FOR RECORDS PERTAINING TO PATIENTS WHO ARE OR HAVE BEEN ENROLLED IN A CHEMICAL DEPENDENCY/SUBSTANCEABUSE PROGRAM, SOME INFORMATION MAY BE OMITTED. This clinical summary was aggregated from multiple sources. Caution should be exercised in using it in the provision of clinical care. This summary normalizes information from multiple sources, and as a consequence, information in this document may materially change the coding, format and clinical context of patient data. In addition, data may be omitted in some cases. CLINICAL DECISIONS SHOULD BE BASED ON THE PRIMARY CLINICAL RECORDS. [employer] [facility]. provides no warranty or guarantee of the accuracy or completeness of information in this document.
--- OUTSIDE RECORDS SUMMARY | 2025-05-01 10:40 | XMS_ITS | Patient Health Record ---
Author Organization [facility] Address [address] [place] [address] Support Name Relationship Address Phone CANDELARIA GROVES Guarantor Unknown [phone] Allergies No Known Allergies Reason For Referral No Information Medications Medication SIG (Take, Route, Frequency, Duration) Notes Start Date End Date Status ibuprofen Active Social History Tobacco Use: Social History Observation Description Date Details (start date - stop date) Never Smoker NA - NA AUDIT-C (Standard) Question Answer Notes Did you have a drink containing alcohol in the p ast year? Yes How often did you have six or more drinks on one occasion in the past year?Never (0 point)How many drinks did you have on a typical day when you were drinking in the past year?1 or 2 drinks (0 point)How often did you have a drink containing alcohol in the past year?2 to 4 times a month (2 points)[id number] NegativeTobacco Control (Standard) Question Answer Notes Tobacco use: Nonsmoker Plan Of Treatment No Information Insurance Providers Payer Name Payer Address Payer Phone Subscriber Number Group Number Insured Name Patient Relationship to Insured Coverage Start Date Coverage End Date [facility] [address] [place] [address] [id number] MIGUELITO GROVESelf - patient is the insured
--- OUTSIDE RECORDS SUMMARY | 2025-05-01 10:40 | XMS_ITS | Clinical Summary ---
Author Organization [employer] [facility] tem Address [id number] [address] [place] [address] Care Team Providers Care [place] Technician Name Role Phone Jm Loya DO Primary Care Provider [phone] Allergies No known active allergies Medications MedicationSigDispense QuantityRefillsLast FilledStart DateEnd DateStatus meloxicam (MOBIC) 15 mg tablet Indications:Rotator cuff arthropathy of right shoulderTake 1 tablet (15 mg total) by mouth in the morning. 30 tablet 5Active Additional Information Patient not taking.Reason: Not effective, Reported on 01/15/2025 Active Problems No known active problems Encounters DateTypeDepartmentCare CurzQajboiqdroq17/02/2025Travelfrom Last 3 Months Family History Medical HistoryRelationNameCommentsHypertensionBrotherDiabetesFatherHeart diseaseFatherNo Known ProblemsMotherRelationNameStatusCommentsBrotherAliveFather DeceasedMotherAlive Social History Tobacco UseTypesPacks/DayYears UsedDateSmoking Tobacco: MbmgbaJofujkqdwa221 Smokeless Tobacco: NeverAlcohol UseStandard Drinks/WeekCommentsYes8 (1 standard drink = 0.6 oz pure alcohol)weeklyPHQ-2AnswerDate RecordedTotal Lszso751 ChildcareAnswerDate LbmvoktyPdfnihkplWucpgut07/12/2019EmploymentAnswerDate ZbeyybwkGkipikyhweYfmalwc25/12/2019Hunger ScreeningAnswerDate RecordedWithin the past 12 months we worried whether our food would run out before we got money to buy more.Never True01/15/2025Within the past 12 months the food we bought just didn't last and we didn't have money to get more.Never True01/15/2025Purpose - LifeAnswerDate RecordedPurpose and direction in wbxhJavprpq96/11/2021ex and Gender InformationValueDate RecordedSex Assigned at BirthNot on fileLegal Sex Male01/13/2015 11:26 AM EDTGender IdentityNot on fileSexual OrientationNot on file Last Filed Vital Signs Vital SignReadingTime TakenCommentsBlood Xbspbgnw506/6808 11:31 AM EDT Ysuon439201/15/2025 11:31 AM AGHLspbymyrbtk01 ??C (98.6 ??F)01/15/2025 11:31 AM EDTRespiratory Gwfl515301/15/2025 11:31 AM EDTOxygen Kzfjxcyhyn93%01/15/2025 11:31 AM EDTInhaled Oxygen Concentration--Cklxui52.5 kg (199 lb 9.6 oz)01/15/2025 11:31 AM BTZTwgtrh074.6 cm (5' 5.98 )01/15/2025 11:31 AM EDTBody Mass Index32.23 01/15/2025 11:31 AM EDT Plan of Treatment Health MaintenanceDue DateLast DoneCommentsAdult BMI Follow Up Plan1995 Influenza Qlobtwp2402/08/2025dult BMI Lefbxchaw01Depression Nsrhnqker85Tobacco Hrofjmujs84DTaP,Tdap and Td Vaccines (2 - Td or Tdap) Medical Devices Not on file Insurance Care Teams Team MemberRelationshipSpecialtyStart DateEnd Date Jm Loya DO [address] [id number] PCP - GeneralInternal Nsmvmnyj16/25/23
--- NOTE | 2025-05-01 11:36 | ED.LOWEXI1 ---
HPI HPI - Extremity Injury (Lower) General Chief Complaint: Extremity Injury, Lower Stated Complaint: LOWER EXTREMITY PAIN Time Seen by Provider: 05/01/25 10:15 Source: patient Mode of arrival: walk-in Limitations: no limitations History of Present Illness HPI Narrative: The patient presented to us with left ankle pain that started almost 2 days ago after he stepped into the leaves in his yard and apparently twisted his ankle. Patient denies any symptoms other than left ankle pain and he is not able to put weight on it because of the pain Related Data Previous Rx's ?Medication ?Instructions ?Recorded ibuprofen 600 mg tablet 600 mg PO Q8H PRN pain #20 tabs 05/01/25 Allergies Allergy/AdvReac Type Severity Reaction Status Date / Time No Known Drug Allergies Allergy Verified 05/01/25 10:13 Opioid HPI Opioid Management Most Recent Pain and Opioid Data: Last Pain Scale 5 Today, 10:32 Last ED Pain Assessment Today, 10:32 Ur Phencyclidine Scrn, (NEGATIVE) Negative 09/06/23, 23:15 Review of Systems ROS Status of ROS 10 or more systems reviewed and unremarkable except as noted in history and below PFSH PFSH Social History Little interest or pleasure in doing things: not at all Feeling down, depressed, or hopeless: not at all Exam Narrative Exam Narrative: Nurses notes and vital signs reviewed and patient is not hypoxic. General: Well-appearing and in no apparent distress. Skin: Warm, dry, no pallor noted. Left lower extremity exam: Ankle swelling noted in addition to medial tenderness on palpation no tenderness upon palpation of the foot that tenderness is mostly around the medial malleolus although the swelling center both malleolus lateral as well as medial no vascular injury detected Neurological: A&O x4. No cranial nerve dysfunction observed. No truncal ataxia. Moves all extremities. Sensation intact. Psychiatric: Cooperative and interactive. Normal mood and affect. Constitutional Vital Signs, click to edit/add: Last Vital Signs Temp 99.2 F 05/01/25 10:09 Pulse 66 05/01/25 10:09 Resp 18 05/01/25 10:09 BP 142/91 H 05/01/25 10:09 Pulse Ox 98 05/01/25 10:09 O2 Del Method Room Air 05/01/25 10:09 Course Vital Signs Vital signs: Vital Signs Temperature 99.2 F 05/01/25 10:09 Pulse Rate 66 05/01/25 10:09 Respiratory Rate 18 05/01/25 10:09 Blood Pressure 142/91 H 05/01/25 10:09 Pulse Oximetry 98 05/01/25 10:09 Oxygen Delivery Method Room Air 05/01/25 10:09 Temperature 99.2 F 05/01/25 10:09 Pulse Rate 66 05/01/25 10:09 Respiratory Rate 18 05/01/25 10:09 Blood Pressure 142/91 H 05/01/25 10:09 Pulse Oximetry 98 05/01/25 10:09 Oxygen Delivery Method Room Air 05/01/25 10:09 MDM - Extremity Injury (Lower) MDM Narrative Medical decision making narrative: Although the x-ray of the left ankle and foot showed that the patient have some swelling but there is no acute finding Crutches provided to the patient in addition to Camilo wrap with elevation and rest and follow-up with podiatry as outpatient The patient to follow-up with the primary care within 2 to 3 days and to come back to the ER in case of any worsening of the current symptoms or any new symptoms or concerns Discharge Plan Discharge Chief Complaint: Extremity Injury, Lower Clinical Impression: Ankle sprain Patient Disposition: Home, Self-Care Time of Disposition Decision: 11:37 Condition: Good Prescriptions / Home Meds: New ibuprofen 600 mg tablet 600 mg PO Q8H PRN (Reason: pain) Qty: 20 0RF Print Language: Chadian Instructions: Ankle Sprain (DC) Referrals: Physician,Non-Staff, MD [Primary Care Provider] - 1 week Lopez Llanes DPM [Physician, Podiatry] - 1 week Discharge Date/Time: 05/01/25 11:55
[2025-05-01 11:53] VITALS: BP 131/88; PULSE 68; O2SAT 98
== END 2025-05-01 11:55 | disposition home or self-care (01) ==
PROVIDERS: Emergency Provider Emergency Medicine
DX: S93.402A Sprain of unspecified ligament of left ankle, initial encounter (principal); X50.1XXA Overexertion from prolonged static or awkward postures, initial encounter
CPT/HCPCS: 73610; 73630; 99283